=== PATIENT | female | born 1975 | race Caucasian/White ===

== ENCOUNTER 2021-06-10 00:14 | Emergency (ER) | payer OTHER ==
[~2021-06-10] VITALS: Ht 157.5 cm; Wt 117.9 kg
[~2021-06-10 00:14] MED LIST: CLON0.5T3 PO; SERT-318 PO
[2021-06-10 00:35] VITALS: BP 167/94
--- NOTE | 2021-06-10 00:35 | NUR ---
ARRIVAL AMBULATED TO ROOM. HAS HAD COUGH, FATIGUE, VOMITING CONGESTION FOR 2-3 DAYS. ALERT AND ORIENTED X3. DENIES PAIN AT THIS TIME.
--- NOTE | 2021-06-10 01:42 | ER.PDOC ---
General Chief Complaint: Cough/Congestion Stated Complaint: COUGH,VOMITING Time seen by MD: 01:39 Source: patient Exam Limitations: no limitations History of Present Illness Initial Comments 45-year-old female presenting with cough, sore throat and concerns of COVID-19. Patient states that she just like to get tested make sure she does not have any infection during the chilango celebration. Patient denies any fever, no travels, no rashes, no loss of taste well, no shortness of breath, no chest pain. Patient has only received 1 shot of the [place] vaccine Severity: mild Associated Symptoms: runny nose, sore throat, cough Allergies: Coded Allergies: No Known Allergies (Unverified , 05/01/13) Home Meds Reported Medications Sertraline Hcl (SERTRALINE HCL) 50 Mg Tablet, 50 MG PO DAILY, TABLET 05/16/14 Clonazepam (CLONAZEPAM) 0.5 Mg Tablet, 0.5 MG PO BID, TABLET 05/16/14 All Other Systems: Reviewed and Negative Past Medical History Medical History: other Surgical History: appendectomy, cholecystectomy, tubal, other Social History Alcohol Use: none Drug Use: none Physical Exam General Appearance: alert, no distress Eye: eyes nml inspection, lids & conjunct. nml, PERRL, no nystagmus Ear: ear nml Nose: nose nml Throat: pharynx nml, airway nml Neck: nml inspection, supple Respiratory: no resp.distress, breath sounds nml Abdomen: non-tender, no organomegaly CVS: reg rate & rhythm, heart sounds nml Skin: color nml, no rash, warm/dry Extremities: non-tender, nml ROM, no pedal edema NEURO/PSYCH: oriented x 3, CN's nml as tested, motor nml, sensation nml, mood/affect nml Results/Orders Results/Orders Orders - KELIN GANDHI C DO Covid19 Antigen Ana Lainez (06/10/21 00:19) Vital Signs Date Time Temp Pulse Resp B/P (MAP) Pulse Ox O2 Delivery O2 Flow Rate FiO2 06/10/21 00:35 97.9 114 18 100 06/10/21 00:35 97.9 114 18 06/10/21 00:35 97.9 114 18 100 Room Air Laboratory Tests Test 06/10/21 01:00 SARS-CoV-2 Antigen (Rapid) NEGATIVE (NEGATIVE) Progress Progress PT is covid negative. will dispo at this time ER DEPART Departure Time of Disposition: 01:41 Disposition: 01 HOME / SELF CARE / HOMELESS Impression: Primary Impression: Acute bronchitis Condition: Stable Patient Instructions: Bronchitis, [id number] Referrals: PCP,UNKNOWN (PCP) PRIMARY CARE PROVIDER LOW PRYOR MD Duration or Time Spent with Pa: 12 min KELIN GANDHI DO Jun 10, 2021 01:41
[2021-06-10 01:45] VITALS: BP 138/78
== END 2021-06-10 01:49 | disposition home or self-care (01) ==
LOC: ER 00:14
DX: J20.9 Acute bronchitis, unspecified (principal); Z20.822 Contact with and (suspected) exposure to COVID-19; Z90.49 Acquired absence of other specified parts of digestive tract
CPT/HCPCS: 87426; 99283

== ENCOUNTER 2021-07-09 14:23 | Emergency (ER) | payer OTHER ==
[~2021-07-09] VITALS: Ht 157.5 cm; Wt 113.4 kg
[2021-07-09 14:55] VITALS: BP_SYST 174; BP_SYST 175; BP_DIAS 85
--- NOTE | 2021-07-09 14:59 | ER.PDOC ---
General Chief Complaint: Requesting Medical Care Stated Complaint: RIGHT ANKLE INJURY Time seen by MD: 14:57 Source: patient Exam Limitations: no limitations History of Present Illness Initial Comments 45-year-old female presenting with right ankle pain after 1 week. Patient explains a week ago she had misstep and twisted her ankle. The pain seemed okay but progressively worsened in the last 24 hours that she misstepped again. Patient denies any history of bony disease or disorder. Did have some swelling around the lateral side of her ankle. Some fullness but no No numbness and no tingling Onset: last week Recent Injury: Yes Where: home Severity: mild Exacerbated By: walking movement Relieved By: rest Allergies: Coded Allergies: No Known Allergies (Unverified , 05/01/13) Home Meds Reported Medications Sertraline Hcl (SERTRALINE HCL) 50 Mg Tablet, 50 MG PO DAILY, TABLET 05/16/14 Clonazepam (CLONAZEPAM) 0.5 Mg Tablet, 0.5 MG PO BID, TABLET 05/16/14 Past Medical History Medical History: other Surgical History: appendectomy, cholecystectomy, tubal, other Social History Drug Use: none Review of Systems All Other Systems: Reviewed and Negative Physical Exam Lower Extremity: tenderness (On palpation to right lateral ankle as well as the arch of patient's foot.) Joint Exam: joints nml, nml ROM Vascular: no vascular compromise, pulses full/equal Neuro/Psych: sensation nml, motor nml, oriented x3 Skin: color nml, warm/dry Back/Neck: nml inspection EENT: eyes inspection nml, pharynx nml Respiratory: no resp distress, breath sounds nml CVS: reg rate & rhythm, heart sounds nml Abdomen: non-tender, no organomegaly Results/Orders Results/Orders Orders - KELIN GANDHI C DO Xr Ankle 3v Rt (07/09/21 14:55) Xr Foot Rt (07/09/21 14:55) Vital Signs Date Time Temp Pulse Resp B/P (MAP) Pulse Ox O2 Delivery O2 Flow Rate FiO2 07/09/21 15:00 98.2 97 20 175/85 (115) 97 Room Air 07/09/21 14:55 98.2 97 20 97 07/09/21 14:55 98.2 97 20 174/85 (114) 97 Room Air 07/09/21 14:55 98.2 97 20 Progress Progress Negative x-ray. Patient is ambulatory without any difficulty. Will discharge home with ibuprofen for pain and swelling. Follow-up with your primary care doctor. ER DEPART Departure Time of Disposition: 15:31 Disposition: 01 HOME / SELF CARE / HOMELESS Impression: Primary Impression: Ankle pain Condition: Stable Patient Instructions: Ankle Pain Referrals: PCP,UNKNOWN (PCP) PRIMARY CARE PROVIDER LOW PRYOR MD PRIMARY CARE PROVIDER Follow up in 3-5 days Duration or Time Spent with Pa: 15 min KELIN GANDHI DO Jul 09, 2021 14:59
[2021-07-09 15:00] VITALS: BP 175/85
--- NOTE | 2021-07-09 15:01 | NUR ---
ARRIVAL PATIENT ARRIVED TO ED6 AMBULATORY, C/O RIGHT ANKLE PAIN FROM A FALL LAST WEEK, TODAY PAIN CONTINUES, CAME TO THE ED FOR EVAL,
--- NOTE | 2021-07-09 15:26 | DIREP ---
PROCEDURE:XRAY ANKLE MIN 3VWS-RT COMPARISON:None. INDICATIONS:ankle pain FINDINGS: BONES:Prominent right calcaneal spurs. JOINTS:Normal. SOFT TISSUES:Normal. OTHER:No additional findings. CONCLUSION:No acute bony abnormality. Dictated by: Lucie Mayer MD on 07/09/2021 at 03:24 PM
--- NOTE | 2021-07-09 15:28 | DIREP ---
PROCEDURE:XRAY FOOT MIN 3 VWS-RT COMPARISON:None. INDICATIONS:foot pain FINDINGS: BONES:Prior right calcaneal spurs. JOINTS:Normal. SOFT TISSUES:Normal. OTHER:No additional findings. CONCLUSION:No acute bony abnormality. Dictated by: Lucie Mayer MD on 07/09/2021 at 03:25 PM
[2021-07-09 15:35] VITALS: BP 188/85
== END 2021-07-09 15:40 | disposition home or self-care (01) ==
LOC: ER 14:23
DX: M25.571 Pain in right ankle and joints of right foot (principal); Z90.49 Acquired absence of other specified parts of digestive tract
CPT/HCPCS: 99284; 73610-RT; 73630-RT

== ENCOUNTER 2021-08-14 16:48 | Observation (INO) | payer OTHER ==
[~2021-08-14] VITALS: Ht 157.5 cm; Wt 131.5 kg
[2021-08-14 17:00] VITALS: BP 153/93
--- NOTE | 2021-08-14 17:04 | NUR ---
ARRIVAL PATIENT ARRIVED TO ED6 AMBULATORY, C/O CHEST PAIN FOR 2 HOURS MANAGER DRILLING, DENIES ANY CARDIAC HISTORY, CAME TO THE ED FOR EVAL, AUTOMOBILE SALESMAN APPLIED AND DOCTOR TINY NOTIFIED OF PATIENT'S ARRIVAL.
[2021-08-14] MEDS ORDERED: ASPIRIN ONE (17:09)
[2021-08-14] MEDS ORDERED: ASPIRIN PO STA (17:13)
--- NOTE | 2021-08-14 17:15 | PCM.EKG ---
[facility] Test Date: 2021-08-14 Test Time: 16:50:22 Pat Name: MARCIAL RO Department: Room: Gender: F Utilization Review Rn: NIKOLAY : 1975 Requested By: MAYRA FRANKS Order Number: [id number] Reading MD: Measurements Intervals [place] Rate: 109 P: 40 FL: 147 QRS: 45 QRSD: 93 T: 57 QT: 334 QTc: 450 Interpretive Statements Sinus tachycardia Inferior infarct, old No previous ECG available for comparison Please click the below link to view image of tracing.
--- NOTE | 2021-08-14 17:21 | ER.PDOC ---
General Chief Complaint: Chest Pain-Cardiac Nature Stated Complaint: CHEST PAIN Time seen by MD: 17:15 Source: patient Exam Limitations: no limitations History of Present Illness Initial Comments Chest pain left upper chest x 2 hours. Timing/Duration: 1-3 hours Severity/Quality: moderate, tightness Radiation: jaw (left), neck (left) Prior CP/Workup: No Prior Chest Pain Nitro Today/Relief: 0.4 mg x 1 Aspirin Today: 325 mg x 1, Provided By ED Associated Symptoms: shortness of breath Allergies: Coded Allergies: No Known Allergies (Unverified , 05/01/13) Home Meds Reported Medications Sertraline Hcl (SERTRALINE HCL) 50 Mg Tablet, 50 MG PO DAILY, TABLET 05/16/14 Clonazepam (CLONAZEPAM) 0.5 Mg Tablet, 0.5 MG PO BID, TABLET 05/16/14 Past Medical History Medical History: no pertinent history Surgical History: appendectomy, cholecystectomy, tubal Family History Significant Family History: no pertinent family hx Social History Smoking: non-smoker Alcohol Use: none Drug Use: none Constitutional: no symptoms reported EENTM: no symptoms reported Respiratory: see HPI Cardiovascular: see HPI Gastrointestinal: no symptoms reported All Other Systems: Reviewed and Negative Physical Exam General Appearance: No Apparent Distress, WD/WN Neck: Non-Tender, Full Range of Motion, Supple, Normal Inspection Respiratory: chest non-tender, lungs clear, normal breath sounds, no respiratory distress, no accessory muscle use Cardiovascular: Normal Peripheral Pulses, Regular Rate, Rhythm, No Edema, No Gallop, No JVD, No Murmur Gastrointestinal: Normal Bowel Sounds, No Organomegaly, No Pulsatile Mass, Non Tender, Soft Extremities: Normal Range of Motion, Non-Tender, Normal Inspection, No Pedal Edema, No Calf Tenderness, Normal Capillary Refill Neurologic/Psychiatric: electric fan assembler II-XII NML as Tested, No Motor/Sensory Deficits, Alert, Normal Mood/Affect, Oriented x 3 Skin: Normal Color, Warm/Dry Lymphatic: No Adenopathy Results/Orders Results/Orders Orders - MAYRA FRANKS MD Aspirin (Aspirin) (08/14/21 17:09) Cbc With Auto Diff (08/14/21 17:13) Creatine Kinase (08/14/21 17:13) Creatine Kinase Mb (08/14/21 17:13) Probnp B-Type Dean For Student Affairs (08/14/21 17:13) PT (08/14/21 17:13) Partial Thromboplastin Time. (08/14/21 17:13) D-Dimer (08/14/21 17:13) Xr Chest 1v (08/14/21 17:13) Ekg-Routine (08/14/21 17:13) Troponin I High Sensitivity (08/14/21 17:13) Basic Metabolic Panel (08/14/21 17:13) Nitroglycerin (Nitrostat) (08/14/21 17:30) Aspirin (Aspirin) (08/14/21 17:13) Vital Signs Date Time Temp Pulse Resp B/P (MAP) Pulse Ox O2 Delivery O2 Flow Rate FiO2 08/14/21 18:01 98.1 93 22 103/56 (72) 94 Room Air 08/14/21 17:00 98.1 111 22 94 08/14/21 17:00 98.1 111 22 08/14/21 17:00 98.1 111 22 153/93 (113) 94 Room Air Administered Medications Medications (Trade) Dose Ordered Sig/Nikhil Route PRN Reason Start Time Stop Time Status Last Admin Dose Admin Aspirin (Aspirin) 325 mg STAT STAT PO 08/14/21 17:13 08/14/21 17:16 DC 08/14/21 17:18 325 MG Nitroglycerin (Nitrostat) 0.4 mg PRN PRN SL CHEST PAIN 08/14/21 17:30 09/13/21 17:29 08/14/21 17:18 0.4 MG Laboratory Tests Test 08/14/21 17:35 White Blood Count 6.6 10^3/uL (4.5-11.0) Red Blood Count 4.58 10^6/uL (4.00-5.20) Hemoglobin 14.0 g/dL (12.0-15.0) Hematocrit 41.2 % (36.0-46.0) Mean Corpuscular Volume 90.0 fL (78-100) Mean Corpuscular Hemoglobin 30.6 pg (26-34) Mean Corpuscular Hemoglobin Concent 34.0 g/dL (33-36.5) Red Cell Distribution Width 12.6 % (11.5-14.5) Platelet Count 170 10^3/uL (150-400) Mean Platelet Volume 10.1 fL (7.8-11.0) Neutrophils (%) (Auto) 64.7 % (41.0-85.0) Lymphocytes (%) (Auto) 28.8 % (24.0-44.0) Monocytes (%) (Auto) 4.0 % (5.0-12.0) L Neutrophils # (Auto) 4.3 10^3/uL (1.8-7.7) Lymphocytes # (Auto) 1.89 10^3/uL1 (1.0-4.8) Monocytes # (Auto) 0.3 10^3/uL (0.3-0.8) Absolute Immature Granulocyte (auto 0.02 10^3 u/L (0-2) Absolute Eosinophils (auto) 0.1 10^3/uL (0.0-0.2) Immature Granulocytes % 0.30 % (0.00-0.50) Eosinophils % 2.0 % (0.0-5.0) Basophils % 0.2 % (0.0-0.2) Basophils # 0.0 10^3/uL (0.0-0.1) Prothrombin Time 10.1 SEC (9.1-11.5) Prothrombin Time INR (Non-Therap) 1.0 Activated Partial Thromboplast Time 25.3 SEC (22.5-33.1) D-Dimer 0.36 mg/L (0.19-0.49) Sodium Level 137 mmol/L (132-145) Potassium Level 3.5 mmol/L (3.6-5.2) L Chloride Level 100.0 mmol/L (96-109) Carbon Dioxide Level 30.9 mmol/L (20.0-32) Glucose Level 165 mg/dL (70-110) H Blood Urea Nitrogen 10 mg/dL (7-18) Creatinine 0.88 mg/dL (0.59-1.40) Calcium Level 9.3 mg/dL (8.4-10.5) Anion Gap 9.6 Estimated GFR () 84.1 (>/=60) Est GFR (CKD-EPI)(Non-Afr Finnish) 69.5 (>/=60) BUN/Creatinine Ratio 11.0 Total Creatine Kinase 80 U/L (26-192) Creatine Kinase MB 1.2 ng/mL (0.5-3.6) Troponin I High Sensitivity 5 ng/L (0-50) Pro-B-Type Natriuretic Peptide 34 pg/mL (0-125) EKG/XRAY/CT/US EKG: NSR EKG Comments: HR 109, sinus tachycardia ER DEPART Departure Time of Disposition: 18:39 Disposition: 09 ADMITTED INPATIENT Impression: Primary Impression: Chest pain Condition: Improved Referrals: PCP,UNKNOWN (PCP) PRIMARY CARE PROVIDER Comments Admitted to Dr. Dalton Duration or Time Spent with Pa: 45 min Problem Qualifiers Primary Impression: Chest pain Chest pain type: unspecified Qualified Codes: R07.9 - Chest pain, unspecified MAYRA FRANKS MD Aug 14, 2021 17:20
[2021-08-14] MEDS ORDERED: NITROSTAT SL PRN (17:30)
--- NOTE | 2021-08-14 17:31 | DIREP ---
PROCEDURE:CHEST 1 VIEW COMPARISON:None. INDICATIONS:Chest pain FINDINGS: LUNGS/PLEURA:No significant pulmonary parenchymal abnormalities. No effusions. No pneumothorax VASCULATURE:Normal. Unremarkable pulmonary vasculature. CARDIAC:Normal. No cardiac silhouette abnormality or cardiomegaly. MEDIASTINUM:Normal. No visible mass or adenopathy. BONES:Normal. No fracture or visible bony lesion. Degenerative changes right AC joint OTHER:Negative. CONCLUSION:No acute findings Dictated by: Kamron Angeles MD on 08/14/2021 at 05:29 PM
[2021-08-14 17:42] LABS: BASOPHIL % 0.2 % (0.0-0.2); EOSINOPHIL # 0.1 10^3/uL (0.0-0.2); LYMPHOCYTES # 1.89 10^3/uL1 (1.0-4.8); LYMPHOCYTES % 28.8 % (24.0-44.0); MEAN CORP HGB 30.6 pg (26-34); MONOCYTES # 0.3 10^3/uL (0.3-0.8); NEUTROPHIL # 4.3 10^3/uL (1.8-7.7); NEUTROPHILS % 64.7 % (41.0-85.0); PLATELET COUNT 170 10^3/uL (150-400); RED CELL DISTRIBUTION WIDTH 12.6 % (11.5-14.5)
[2021-08-14 18:01] VITALS: BP 103/56
[2021-08-14 18:06] LABS: CARBON DIOXIDE 30.9 mmol/L (20.0-32)
--- NOTE | 2021-08-14 18:49 | NUR ---
CALLED FOR ROOM ON [facility], CHARGE WILL CALL BACK AFTER SHIFT REPORT WITH ROOM NUMBER.
[2021-08-14 20:00] VITALS: BP 112/68
--- NOTE | 2021-08-14 20:11 | NUR ---
REPORT CALLED TO GO RUSSELL RN. PT GOING TO [facility] [id number].
[2021-08-14 22:16] VITALS: BP 113/69
[2021-08-15 00:24] VITALS: BP 126/77
[2021-08-15 04:19] VITALS: BP 112/66
[2021-08-15 08:19] VITALS: BP 119/72
--- NOTE | 2021-08-15 10:37 | PCM.HP ---
History of Present Illness Hx of Present Illness This is both H&P and discharge summary as patient was admitted between and within 24 hours. Patient is a 45-year-old female with no significant past medical history presented to the emergency department with complaint of chest pain on the left side described as tightening chest pain radiating to her left jaw never asked her to pain before in the past that got her scared and came to the emergency department. Initial cardiac work-up was negative due to patient's symptoms after receiving nitroglycerin she was admitted to the medical floor for observation overnight. Serial EKGs and troponins were negative chest pain was resolved overnight and patient was planned this morning to be discharged home and follow-up with PCP. Past Medical History Hx Last Menstrual Period: 08/07/21 Travel History [place] RISK:Travel to/contact w: No Review of Systems Other All review of systems are negative Allergies: Coded Allergies: No Known Allergies (Unverified , 05/01/13) Scheduled Clonazepam (Clonazepam), 0.5 MG PO BID, (Reported) Sertraline Hcl (Sertraline Hcl), 50 MG PO DAILY, (Reported) VTE VTE Risk Total Score: 1 VTE Risk Score VTE Risk: Score 0-1 = Low Risk (Aggressive mobilization; early ambulation; no VTE prophylaxis required) Score 2: Moderate Risk (Intermittent/Pneumatic Compression Device OR Lovenox/Heparin/Coumadin) Score 3-4: High Risk (Intermittent/Pneumatic Compression Device AND Lovenox/Heparin/Coumadin) Score > or =5: Highest Risk (Intermittent/Pneumatic Compression Device AND Lovenox/Heparin/Coumadin) VTE VTE Present on Admission: No Currently receiving anticoagul: No VTE Risk Total Score: 1 Exam Vital Signs Vital Signs Date Time Temp Pulse Resp B/P (MAP) Pulse Ox O2 Delivery O2 Flow Rate FiO2 08/15/21 08:59 Room Air 08/15/21 08:19 97.7 77 14 119/72 (88) 94 General Appearance: Alert, Oriented X3, Cooperative, No acute distress HEENT: Atraumatic, PERRLA, EOMI Respiratory: Clear to auscultation, Normal air movement Cardiovascular: Regular rate, Normal S1, Normal S2 Abdominal: Normal bowel sounds, Soft, No tenderness Extremities: No clubbing, No cyanosis, No edema, Normal pulses Skin: No rash, No breakdown, No lesions Neuro: Normal gait, Normal speech, Strength at 5/5 X4 ext Psych/Mental Status: Mental status NL (Called patient had a kidney was probably under 1.) Assessment/Plan Assessment/Plan Assessment/Plan Chest pain - negative cardiac workup followup with pcp Patient History: Chronic obstructive pulmonary disease 33 FATHER Diabetes mellitus 32 MOTHER Hypertension 32 MOTHER No Family History of: Alzheimer's disease Asthma Cerebrovascular disorder Congestive heart failure Diabetes insipidus Parkinson's disease DEMETRIUS ROBLES MD Aug 15, 2021 10:37
--- NOTE | 2021-08-15 10:39 | NUR ---
DISCHARGE PLANNING CM VISITED WITH PATIENT AND PATIENT'S KIDS ABOUT DISCHARGE PLANNING AND NEEDS. PATIENT CURRENTLY LIVING WITH PATIENT'S SON HERE IN [place] WHILE SHE IS FINDING HER SOMEWHERE TO LIVE IN [place] OR [place], NEAR HER DAUGHTER AND IS IND WITH ALL ADL. PATIENT DENIES ANY NEED FOR ANY DME. PATIENT REPORTS THAT SHE IS GOING TO THE [facility] IN [place] FOR PCP. PATIENT PLANS TO DISCHARGE HOME TO PATIENT'S SON'S HOME TO SELF CARE AND DENIES ANY OTHER DISCHARGE NEEDS.
[2021-08-15 10:52] VITALS: BP 119/72
--- NOTE | 2021-08-15 10:52 | NUR ---
DISCHARGE DISCHARGE INSTRUCTION GIVEN AND QUESTIONS ANSWERED, VOICED UNDERSTANDING. PT DECLINED W/C AMBULATED OFF UNIT ON OWN ACCORD WITH STEADY GAIT IN APPARENT STABLE CONDITION
== END 2021-08-15 10:54 | disposition home or self-care (01) ==
LOC: ER 16:48 → MS 19:31 → EDBEDREQ 19:41
PROVIDERS: ADMIT Student in an Organized Health Care Education/Training Program; ATTEND Student in an Organized Health Care Education/Training Program
DX: R07.89 Other chest pain (principal); Z20.822 Contact with and (suspected) exposure to COVID-19; Z79.899 Other long term (current) drug therapy
CPT/HCPCS: 36415 ×2; 71045; 80048; 82550; 82553; 83880; 84484 ×3; 85025; 85379; 85610; 85730; 87426; 93005; 99285; G0378 ×16

== ENCOUNTER 2021-10-29 06:36 | Emergency (ER) | payer OTHER, SELFPAY ==
[~2021-10-29] VITALS: Ht 157.5 cm; Wt 113.4 kg
[2021-10-29 06:36] VITALS: BP 144/92
--- NOTE | 2021-10-29 06:36 | NUR ---
ARRIVAL PATIENT ARRIVED TO ED4 AMBULATORY, C/O GENERALIZED ABDOMEN PAIN FOR THE PAST 3 HOURS, DENIES TAKING ANY MEDICATIONS DUPLICATE MAKER, CAME TO THE ED FOR EVAL, VITAL SIGNS TAKEN AND DOCTOR NOTIFIED OF PATIENT'S ARRIVAL.
[2021-10-29 07:09] LABS: BILIRUBIN,URINE NEGATIVE (NEGATIVE); UROBILINOGEN,URINE 0.2 E.U./dL (0.2)
[2021-10-29 07:20] LABS: BASOPHIL % 0.2 % (0.0-0.2); EOSINOPHIL # 0.2 10^3/uL (0.0-0.2); EOSINOPHIL % 1.6 % (0.0-5.0); LYMPHOCYTES # 1.65 10^3/uL1 (1.0-4.8); LYMPHOCYTES % 17.4 % (24.0-44.0); MEAN CORP HGB 30.9 pg (26-34); MONOCYTES # 0.4 10^3/uL (0.3-0.8); MONOCYTES % 4.5 % (5.0-12.0); NEUTROPHIL # 7.2 10^3/uL (1.8-7.7); NEUTROPHILS % 76.1 % (41.0-85.0); PLATELET COUNT 138 10^3/uL (150-400); RED CELL DISTRIBUTION WIDTH 13.1 % (11.5-14.5)
[2021-10-29] MEDS ORDERED: MYLANTA PO STA (07:24)
[2021-10-29] MEDS ORDERED: LIDOCAINE HCL VISCOUS PO STA (07:24)
[2021-10-29] MEDS ORDERED: LIDOCAINE HCL VISCOUS ONE (07:25)
[2021-10-29] MEDS ORDERED: MYLANTA ONE (07:26)
[2021-10-29] MEDS ORDERED: PEPCID PO STA (07:34)
[2021-10-29 07:38] LABS: CARBON DIOXIDE 25.3 mmol/L (20.0-32)
[2021-10-29] MEDS ORDERED: PEPCID ONE (07:39)
[2021-10-29] MEDS ORDERED: TYLENOL #3 PO ONE ×2 (07:40)
[2021-10-29 07:47] VITALS: BP 141/90
--- NOTE | 2021-10-29 07:51 | ER.PDOC ---
General Chief Complaint: Abdomen Pain Stated Complaint: MID ABD PAIN Time seen by MD: 07:30 Source: patient Exam Limitations: no limitations History of Present Illness Initial Comments 45-year-old female with a history of H. pylori that was treated years ago who now comes here with acute onset of epigastric abdominal pain that started early this morning when she woke up. The patient admits to being a smoker and also eats some spicy meals. No fever and no chills. No nausea no vomiting. No diarrhea. Symptoms are not associated with activity. The pain is described as moderate to severe and persistent and sharp. Denies any other complaint. Allergies: Coded Allergies: No Known Allergies (Unverified , 05/01/13) Home Meds No Active Prescriptions or Reported Meds Vital Signs First Vital Signs Date Time Temp Pulse Resp B/P (MAP) Pulse Ox O2 Delivery O2 Flow Rate FiO2 10/29/21 06:36 98.3 89 20 10/29/21 06:36 96 10/29/21 06:36 144/92 (109) Room Air* 0 21 Last Vital Signs Date Time Temp Pulse Resp B/P (MAP) Pulse Ox O2 Delivery O2 Flow Rate FiO2 10/29/21 07:47 98.3 79 20 141/90 (107) 96 Room Air* 0 21 Past Medical History Medical History: no pertinent history, other (H. pylori and gastritis) Surgical History: appendectomy, cholecystectomy, tubal Family History Significant Family History: no pertinent family hx Social History Smoking: less than 1 pack/day Alcohol Use: none Drug Use: none Reviewed Nursing Reviewed: Vital Signs, Abn. Noted, Nursing Assessment Constitutional: denies no symptoms reported, denies see HPI, denies chills, denies diaphoresis, denies fever, denies malaise, denies weakness, denies other EENTM: denies no symptoms reported, denies see HPI, denies eye pain, denies blurred vision, denies tearing, denies double vision, denies ear pain, denies ear discharge, denies nose pain, denies nose congestion, denies throat pain, denies throat swelling, denies mouth pain, denies mouth swelling, denies other Respiratory: denies no symptoms reported, denies see HPI, denies cough, denies orthopnea, denies shortness of breath, denies SOB with exertion, denies SOB at rest, denies stridor, denies wheezing, denies other Cardiovascular: denies no symptoms reported, denies see HPI, denies chest pain, denies edema, denies irregular heart rate, denies lightheadedness, denies palpitations, denies syncope, denies other Gastrointestinal: denies no symptoms reported, denies see HPI, denies abdomen distended; abdominal pain; denies blood streaked bowels, denies constipated, denies diarrhea, denies difficulty swallowing, denies nausea, denies poor appeti te, denies poor fluid intake, denies rectal bleeding, denies vomiting, denies other Genitourinary: denies no symptoms reported, denies see HPI, denies burning, denies dysuria, denies discharge, denies frequency, denies flank pain, denies hematuria, denies incontinence, denies pain, denies urgency, denies other Musculoskeletal: denies no symptoms reported, denies see HPI, denies back pain, denies gout, denies joint pain, denies joint swelling, denies muscle pain, d enies muscle stiffness, denies neck pain, denies other Skin: denies no symptoms reported, denies see HPI, denies change in color, denies change in hair/nails, denies dryness, denies lesions, denies lumps, denies rash, denies other Psychiatric/Neurological: denies no symptoms reported, denies see HPI, denies anxiety, denies depressed, denies emotional problems, denies headache, denies numbness, denies paresthesia, denies pre-existing deficit, denies seizure, denies tingling, denies tremors, denies weakness, denies other Endocrine: denies no symptoms reported, denies see HPI, denies excessive sweating, denies flushing, denies intolerance to cold, denies intolerance to heat, denies increased hunger, denies increased thrist, denies increased urine, denies unexplained weight gain, denies unexplaned weight loss, denies other Hematologic/Lymphatic: denies no symptoms reported, denies see HPI, denies anemia, denies blood clots, denies easy bleeding, denies easy bruising, denies swollen glands, denies other All Other Systems: Reviewed and Negative Physical Exam General Appearance: Mild Distress HEENT: PERRL/EOMI, Normal ENT Inspection Neck: Non-Tender, Full Range of Motion, Supple, Normal Inspection Respiratory: chest non-tender, lungs clear, normal breath sounds, no respiratory distress, no accessory muscle use Cardiovascular: Normal Peripheral Pulses, Regular Rate, Rhythm, No Edema, No Gallop, No JVD, No Murmur Gastrointestinal: Normal Bowel Sounds, No Organomegaly, No Pulsatile Mass, Non Tender, Soft Back: Normal Inspection, No CVA Tenderness Extremities: Non-Tender, Normal Inspection, No Pedal Edema, No Calf Tenderness, Normal Capillary Refill 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, No Motor/Sensory Deficits, Alert, Normal Mood/Affect, Oriented x 3 Skin: Normal Color, Warm/Dry, Cyanosis Results/Orders Results/Orders Orders - RIA ROMO MD Mag Hydrox/Aluminum Hyd/Simeth (Mylanta) (10/29/21 07:24) Lidocaine Hcl (Lidocaine Hcl Viscous) (10/29/21 07:24) Lidocaine Hcl (Lidocaine Hcl Viscous) (10/29/21 07:25) Mag Hydrox/Aluminum Hyd/Simeth (Mylanta) (10/29/21 07:26) Famotidine (Pepcid) (10/29/21 07:34) Acetaminophen With Codeine (Tylenol #3) (10/29/21 07:40) Famotidine (Pepcid) (10/29/21 07:39) Acetaminophen With Codeine (Tylenol #3) (10/29/21 07:40) Helicobacter Pylori (10/29/21 07:55) Vital Signs Date Time Temp Pulse Resp B/P (MAP) Pulse Ox O2 Delivery O2 Flow Rate FiO2 10/29/21 07:47 98.3 79 20 141/90 (107) 96 Room Air* 0 21 10/29/21 06:36 98.3 89 20 144/92 (109) 96 Room Air* 0 21 10/29/21 06:36 98.3 89 20 96 10/29/21 06:36 98.3 89 20 Administered Medications Medications (Trade) Dose Ordered Sig/Nikhil Route PRN Reason Start Time Stop Time Status Last Admin Dose Admin Acetaminophen/ Codeine Phosphate (Tylenol #3) 1 each OT ONCE PO 10/29/21 07:40 10/29/21 07:41 DC 10/29/21 07:41 1 EACH Famotidine (Pepcid) 40 mg STAT STAT PO 10/29/21 07:34 10/29/21 07:36 DC 10/29/21 07:40 40 MG Lidocaine HCl (Lidocaine HCl Viscous) 15 ml STAT STAT PO 10/29/21 07:24 10/29/21 07:26 DC 10/29/21 07:28 15 ML Laboratory Tests Test 10/29/21 06:44 10/29/21 07:15 Urine Collection Type RANDOM Urine Color YELLOW Urine Appearance CLEAR Urine Bilirubin NEGATIVE (NEGATIVE) Urine Ketones NEGATIVE (NEGATIVE) Urine Specific [place] 1.020 (1.005-1.030) Urine pH 5.0 (4.5-8.0) Urine Protein NEGATIVE (NEGATIVE) Urine Urobilinogen 0.2 E.U./dL (0.2) Urine Nitrate NEGATIVE (NEGATIVE) Urine Leukocyte Esterase NEGATIVE (NEGATIVE) Urine Glucose (Auto)(UA) NEGATIVE (NEGATIVE) Urine Blood NEGATIVE (NEGATIVE) White Blood Count 9.5 10^3/uL (4.5-11.0) Red Blood Count 4.31 10^6/uL (4.00-5.20) Hemoglobin 13.3 g/dL (12.0-15.0) Hematocrit 38.7 % (36.0-46.0) Mean Corpuscular Volume 89.8 fL (78-100) Mean Corpuscular Hemoglobin 30.9 pg (26-34) Mean Corpuscular Hemoglobin Concent 34.4 g/dL (33-36.5) Red Cell Distribution Width 13.1 % (11.5-14.5) Platelet Count 138 10^3/uL (150-400) L Mean Platelet Volume 10.3 fL (7.8-11.0) Neutrophils (%) (Auto) 76.1 % (41.0-85.0) Lymphocytes (%) (Auto) 17.4 % (24.0-44.0) L Monocytes (%) (Auto) 4.5 % (5.0-12.0) L Neutrophils # (Auto) 7.2 10^3/uL (1.8-7.7) Lymphocytes # (Auto) 1.65 10^3/uL1 (1.0-4.8) Monocytes # (Auto) 0.4 10^3/uL (0.3-0.8) Absolute Immature Granulocyte (auto 0.02 10^3 u/L (0-2) Absolute Eosinophils (auto) 0.2 10^3/uL (0.0-0.2) Immature Granulocytes % 0.20 % (0.00-0.50) Eosinophils % 1.6 % (0.0-5.0) Basophils % 0.2 % (0.0-0.2) Basophils # 0.0 10^3/uL (0.0-0.1) Sodium Level 134 mmol/L (132-145) Potassium Level 4.0 mmol/L (3.6-5.2) Chloride Level 103.0 mmol/L (96-109) Carbon Dioxide Level 25.3 mmol/L (20.0-32) Anion Gap 9.7 Blood Urea Nitrogen 11 mg/dL (7-18) Creatinine 0.76 mg/dL (0.59-1.40) Estimated GFR () 99.6 (>/=60) Est GFR (CKD-EPI)(Non-Afr [place]) 82.3 (>/=60) BUN/Creatinine Ratio 14.0 Glucose Level 116 mg/dL (70-110) H Calcium Level 8.8 mg/dL (8.4-10.5) Total Bilirubin 0.5 mg/dL (0.2-1.0) Aspartate Amino Transferase (AST) 27 U/L (0-35) Alanine Aminotransferase (ALT) 39 U/L (12-78) Alkaline Phosphatase 97 U/L (50-136) Total Protein 7.5 g/dL (6.4-8.2) Albumin 3.5 g/dL (3.4-5.0) Globulin 4.0 Albumin/Globulin Ratio 0.875 Lipase 57 U/L (114-286) L Serum HCG, Qualitative NEGATIVE (NEGATIVE) Helicobacter pylori Screen NEGATIVE (NEGATIVE) Progress Progress All work-up. Negative. No vomiting. No fever. No diarrhea. Low likelihood of any severe intra-abdominal pathology. Will discharge home. She can follow- up with the primary care doctor ER DEPART Departure Time of Disposition: 08:18 Disposition: 01 HOME / SELF CARE / HOMELESS Impression: Primary Impression: Gastritis Additional Impression: Abdominal pain Condition: Improved Patient Instructions: Gastritis, Adult Referrals: PCP,UNKNOWN (PCP) PRIMARY CARE PROVIDER Additional Instructions: avoid all spicy meals no smoking follow up with PCP AMIE Return to clinic if symptoms worsen Scripts No Active Prescriptions or Reported Meds Duration or Time Spent with Pa: 20 min Problem Qualifiers RIA ROMO MD October 29, 2021 07:51
== END 2021-10-29 08:27 | disposition home or self-care (01) ==
LOC: ER 06:36
DX: K29.70 Gastritis, unspecified, without bleeding (principal); R10.31 Right lower quadrant pain; F17.210 Nicotine dependence, cigarettes, uncomplicated; Z86.19 Personal history of other infectious and parasitic diseases; Z87.19 Personal history of other diseases of the digestive system; Z90.49 Acquired absence of other specified parts of digestive tract
CPT/HCPCS: 36415; 80053; 81003; 83690; 84703; 85025; 86677; 99284; J3490 ×2

== ENCOUNTER 2022-03-05 10:00 | Inpatient (IN) | payer SELFPAY ==
[~2022-03-05] VITALS: Ht 157.5 cm; Wt 123.6 kg
[2022-03-05 10:00] VITALS: BP 159/120
--- NOTE | 2022-03-05 10:00 | NUR ---
ARRIVAL PT PRESENTS TO THE ED VIA AMBULATORY WITH C/O ABD PAIN. PT STATES LAST NIGHT SHE STARTED TO HAVE PAIN IN HER LOWER ABD/ PELVIC AREA, PT STATES IT FEELS LIKE SHE IS HAVING CONTRACTIONS, SHE STATES SHE HAS SO MUCH PRESSURE IN THAT AREA. PT DENIES ANY CHANCE OF , SHE STATES SHE IS ABLE TO URINATE BUT IT IS HARD TO GET A STREAM GOING. PT VITALS OBTAINED, PT STABLE, NOTIFIED OF PT ARRIVAL.
[2022-03-05] MEDS ORDERED: NS 1000ML 1,000 ML STA (10:45)
[2022-03-05] MEDS ORDERED: MORPHINE SULFATE IV STA ×2 (10:45→12:18)
[2022-03-05] MEDS ORDERED: ZOFRAN IV STA (10:45)
[2022-03-05] MEDS ORDERED: ZOFRAN ONE (11:19)
[2022-03-05] MEDS ORDERED: MORPHINE SULFATE ONE (11:19)
[2022-03-05] MEDS ORDERED: NS 1000ML 1,000 ML ONE (11:19)
[2022-03-05 11:25] LABS: BILIRUBIN,URINE NEGATIVE (NEGATIVE)
[2022-03-05 11:50] LABS: CARBON DIOXIDE 22.2 mmol/L (20.0-32)
--- NOTE | 2022-03-05 12:04 | DIREP ---
PROCEDURE:CT ABDOMEN/PELVIS W/O CONTRAST COMPARISON:None. INDICATIONS:abd pain TECHNIQUE:Axial images were created through the abdomen and pelvis without intravenous contrast material. No oral contrast was administered. Sagittal and coronal reconstructions were performed from source images. FINDINGS: LUNG BASES:Normal. No visible pulmonary or pleural disease. LIVER:Normal. No significant liver lesions are identified. BILIARY:The gallbladder is surgically absent. PANCREAS:Normal. No lesion, fluid collection, ductal dilatation, or atrophy. SPLEEN:Normal. No enlargement or focal lesion. ADRENALS:Normal. No mass or enlargement. URINARY TRACT:Normal. No focal lesions or hydronephrosis. AORTA/VASCULAR:Normal. No aneurysm. RETROPERITONEUM:Normal. No mass or adenopathy. BOWEL/MESENTERY:Mesenteric inflammatory changes surrounding the sigmoid colon and multiple diverticuli. Findings are felt to represent acute diverticulitis. No evidence of perforation. Mild free fluid in the pelvis tab ABDOMINAL WALL:Normal. No mass or hernia. PELVIC ORGANS:Normal. No visible mass. Pelvic organs appropriate for patient age. BONES:Grade 2 spondylolisthesis L5 on S1 with severe bilateral neural foraminal narrowing. OTHER:Negative. CONCLUSION: 1. Acute diverticulitis, without evidence of perforation. 2. Grade 2 spondylolisthesis L5 on S1 with severe bilateral neural foraminal narrowing. Dictated by: Brenton Scott DO on 03/05/2022 at 12:00 PM
[2022-03-05] MEDS ORDERED: FLAGYL 500MG/ 100 ML NS 100 ML IV STA (12:18)
[2022-03-05 12:27] LABS: MEAN CORP HGB 30.6 pg (26-34)
[2022-03-05 12:28] LABS: BASOPHIL % 0.2 % (0.0-0.2); EOSINOPHIL % 0.4 % (0.0-5.0); LYMPHOCYTES # 1.57 10^3/uL1 (1.0-4.8); LYMPHOCYTES % 14.8 % (24.0-44.0); MONOCYTES # 0.5 10^3/uL (0.3-0.8); MONOCYTES % 4.7 % (5.0-12.0); NEUTROPHIL # 8.4 10^3/uL (1.8-7.7); NEUTROPHILS % 79.7 % (41.0-85.0); PLATELET COUNT 138 10^3/uL (150-400); RED CELL DISTRIBUTION WIDTH 12.4 % (11.5-14.5)
--- NOTE | 2022-03-05 12:53 | ER.PDOC ---
General Chief Complaint: Abdomen Pain Stated Complaint: LOWER ABD/BACK PAIN Time seen by MD: 10:49 Source: patient Exam Limitations: no limitations History of Present Illness Initial Comments Patient is a 46-year-old femaleWith no reported past medical history who comes in with 3 days worth of abdominal pain that is worsening. Patient states over the past 3 days she has had lower quadrant bilateral abdominal pain that is cramping in nature says it is made worse with movement and palpation better with rest. She states that she has associated symptoms of mild diarrhea with some mild nausea without vomiting. Patient denies any fevers.Patient denies any blood in herDiarrheaPatient denies any changes in her urine Allergies: Coded Allergies: No Known Allergies (Unverified , 05/01/13) Home Meds No Active Prescriptions or Reported Meds Vital Signs First Vital Signs Date Time Temp Pulse Resp B/P (MAP) Pulse Ox O2 Delivery O2 Flow Rate FiO2 03/05/22 10:00 98.6 90 20 97 03/05/22 10:00 159/120 (133) Room Air* 0 21 Last Vital Signs Date Time Temp Pulse Resp B/P (MAP) Pulse Ox O2 Delivery O2 Flow Rate FiO2 03/05/22 10:00 98.6 90 20 159/120 (133) 97 Room Air* 0 21 Past Medical History Medical History: no pertinent history Surgical History: appendectomy, cholecystectomy, tubal Family History Significant Family History: no pertinent family hx Social History Smoking: non-smoker Alcohol Use: none Drug Use: none Reviewed Nursing Reviewed: Vital Signs, Abn. Noted, Nursing Assessment Constitutional: malaise EENTM: denies no symptoms reported, denies see HPI, denies eye pain, denies blurred vision, denies tearing, denies double vision, denies ear pain, denies ear discharge, denies nose pain, denies nose congestion, denies throat pain, denies throat swelling, denies mouth pain, denies mouth swelling, denies other Respiratory: denies no symptoms reported, denies see HPI, denies cough, denies orthopnea, denies shortness of breath, denies SOB with exertion, denies SOB at rest, denies stridor, denies wheezing, denies other Cardiovascular: denies no symptoms reported, denies see HPI, denies chest pain, denies edema, denies irregular heart rate, denies lightheadedness, denies palpitations, denies syncope, denies other Gastrointestinal: abdomen distended, abdominal pain, diarrhea, nausea Genitourinary: denies no symptoms reported, denies see HPI, denies burning, denies dysuria, denies discharge, denies frequency, denies flank pain, denies hematuria, denies incontinence, denies pain, denies urgency, denies other Musculoskeletal: denies no symptoms reported, denies see HPI, denies back pain, denies gout, denies joint pain, denies joint swelling, denies muscle pain, denies muscle stiffness, denies neck pain, denies other Skin: denies no symptoms reported, denies see HPI, denies change in color, denies change in hair/nails, denies dryness, denies lesions, denies lumps, denies rash, denies other Psychiatric/Neurological: denies no symptoms reported, denies see HPI, denies anxiety, denies depressed, denies emotional problems, denies headache, denies numbness, denies paresthesia, denies pre-existing deficit, denies seizure, denies tingling, denies tremors, denies weakness, denies other Endocrine: denies no symptoms reported, denies see HPI, denies excessive sweating, denies flushing, denies intolerance to cold, denies intolerance to heat, denies increased hunger, denies increased thrist, denies increased urine, denies unexplained weight gain, denies unexplaned weight loss, denies other Hematologic/Lymphatic: denies no symptoms reported, denies see HPI, denies anemia, denies blood clots, denies easy bleeding, denies easy bruising, denies swollen glands, denies other Physical Exam General Appearance: Anxious HEENT: PERRL/EOMI, Normal ENT Inspection, TMs Normal, Pharynx Normal Neck: Non-Tender, Full Range of Motion, Supple, Normal Inspection Respiratory: chest non-tender, lungs clear, normal breath sounds, no respiratory distress, no accessory muscle use Cardiovascular: Normal Peripheral Pulses, Regular Rate, Rhythm, No Edema, No Gallop, No JVD, No Murmur Gastrointestinal: Hyperactive bowel sounds, Soft, Tenderness (Diffusely worse in bilateral lower quadrants and across the midsection) Back: Normal Inspection, No CVA Tenderness, No Vertebral Tenderness Extremities: Normal Range of Motion, Non-Tender, Normal Inspection, No Pedal Edema, No Calf Tenderness, Normal Capillary Refill, Pelvis Stable 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 (03/05/22 10:45) Hcg Qualitative Serum (03/05/22 10:45) Urinalysis (03/05/22 10:45) Saline Lock (03/05/22 10:45) Ct Abd/Pelvis Wo Iv Contrast (03/05/22 10:45) 0.9 % Sodium Chloride (Ns 1000ml) (03/05/22 10:45) Morphine Sulfate (Morphine Sulfate) (03/05/22 10:45) Ondansetron Hcl/Pf (Zofran) (03/05/22 10:45) 0.9 % Sodium Chloride (Ns 1000ml) (03/05/22 11:19) Ondansetron Hcl/Pf (Zofran) (03/05/22 11:19) Morphine Sulfate (Morphine Sulfate) (03/05/22 11:19) Metronidazole/Sodium Chloride (Flagyl 50 (03/05/22 12:18) Morphine Sulfate (Morphine Sulfate) (03/05/22 12:18) Cbc With Auto Diff (03/05/22 11:20) Hospitalist Consult (03/05/22 12:45) Vital Signs Date Time Temp Pulse Resp B/P (MAP) Pulse Ox O2 Delivery O2 Flow Rate FiO2 03/05/22 10:00 98.6 90 20 159/120 (133) 97 Room Air* 0 21 03/05/22 10:00 98.6 90 20 03/05/22 10:00 98.6 90 20 97 Administered Medications Medications (Trade) Dose Ordered Sig/Nikhil Route PRN Reason Start Time Stop Time Status Last Admin Dose Admin Metronidazole 100 ml @ 100 mls/hr OT STAT IV 03/05/22 12:18 03/05/22 13:17 UNV 03/05/22 12:36 100 MLS/HR Morphine Sulfate (Morphine Sulfate) 4 mg STAT STAT IV 03/05/22 10:45 03/05/22 10:47 DC 03/05/22 11:28 4 MG Morphine Sulfate (Morphine Sulfate) 4 mg STAT STAT IV 03/05/22 12:18 03/05/22 12:19 UNV 03/05/22 12:34 4 MG Ondansetron HCl (Zofran) 4 mg OT STAT IV 03/05/22 10:45 03/05/22 10:47 DC 03/05/22 11:28 4 MG Sodium Chloride 1,000 ml @ 0 mls/hr Q0M STAT IV 03/05/22 10:45 03/05/22 10:47 DC 03/05/22 11:28 1,200 MLS/HR Laboratory Tests Test 03/05/22 00:00 03/05/22 11:20 Urine Collection Type UNKNOWN Urine Color YELLOW Urine Appearance CLEAR Urine Bilirubin NEGATIVE (NEGATIVE) Urine Ketones NEGATIVE (NEGATIVE) Urine Specific [place] 1.020 (1.005-1.030) Urine pH 7.0 (4.5-8.0) Urine Protein NEGATIVE (NEGATIVE) Urine Urobilinogen 1.0 E.U./dL (0.2) Urine Nitrate NEGATIVE (NEGATIVE) Urine Leukocyte Esterase NEGATIVE (NEGATIVE) Urine Glucose (Auto)(UA) NEGATIVE (NEGATIVE) Urine Blood NEGATIVE (NEGATIVE) White Blood Count 10.6 10^3/uL (4.5-11.0) Red Blood Count 4.80 10^6/uL (4.00-5.20) Hemoglobin 14.7 g/dL (12.0-15.0) Hematocrit 42.3 % (36.0-46.0) Mean Corpuscular Volume 88.1 fL (78-100) Mean Corpuscular Hemoglobin 30.6 pg (26-34) Mean Corpuscular Hemoglobin Concent 24.8 g/dL (33-36.5) L Red Cell Distribution Width 12.4 % (11.5-14.5) Platelet Count 138 10^3/uL (150-400) L Mean Platelet Volume 10.2 fL (7.8-11.0) Neutrophils (%) (Auto) 79.7 % (41.0-85.0) Lymphocytes (%) (Auto) 14.8 % (24.0-44.0) L Monocytes (%) (Auto) 4.7 % (5.0-12.0) L Neutrophils # (Auto) 8.4 10^3/uL (1.8-7.7) H Lymphocytes # (Auto) 1.57 10^3/uL1 (1.0-4.8) Monocytes # (Auto) 0.5 10^3/uL (0.3-0.8) Absolute Immature Granulocyte (auto 0.02 10^3 u/L (0-2) Absolute Eosinophils (auto) 0.0 10^3/uL (0.0-0.2) Immature Granulocytes % 0.20 % (0.00-0.50) Eosinophils % 0.4 % (0.0-5.0) Basophils % 0.2 % (0.0-0.2) Basophils # 0.0 10^3/uL (0.0-0.1) Prothrombin Time 10.8 SEC (9.1-11.5) Prothrombin Time INR (Non-Therap) 1.1 Activated Partial Thromboplast Time 20.3 SEC (22.5-33.1) L Sodium Level 137 mmol/L (132-145) Potassium Level 4.4 mmol/L (3.6-5.2) Chloride Level 99.0 mmol/L (96-109) Carbon Dioxide Level 22.2 mmol/L (20.0-32) Anion Gap 20.2 Blood Urea Nitrogen 11 mg/dL (7-18) Creatinine 0.53 mg/dL (0.59-1.40) L Estimated GFR () 150.3 (>/=60) Est GFR (CKD-EPI)(Non-Afr [place]) 124.2 (>/=60) BUN/Creatinine Ratio 20.0 Glucose Level 125 mg/dL (70-110) H Calcium Level 9.0 mg/dL (8.4-10.5) Total Bilirubin 1.0 mg/dL (0.2-1.0) Aspartate Amino Transferase (AST) 58 U/L (0-35) H Alanine Aminotransferase (ALT) 62 U/L (12-78) Alkaline Phosphatase 94 U/L (50-136) Total Protein 7.5 g/dL (6.4-8.2) Albumin 3.6 g/dL (3.4-5.0) Globulin 3.9 Albumin/Globulin Ratio 0.923 Lipase 35 U/L (114-286) L Serum HCG, Qualitative NEGATIVE (NEGATIVE) Progress Progress Patient here with lower abdominal pain seems to be in significant distress. Will provide pain and nausea control however will also obtain labs including urine and CT abdomen this is patient could have a surgical abdomen. Patient otherwise hemodynamically stable. 1251reassessmentpatient still remains in pain. Her pain has been difficult to control discussed with her at length that this is usually an outpatient treatment but she kept saying that she would prefer to stay admitted because of the pain that she is in at this point she has gotten 8 mg ofMorphine. Was able to discuss the case with Dr. Johnson at 1248 who accepted the patient for admission.Patient otherwise hemodynamically normal.Flagyl was started. ER DEPART Departure Time of Disposition: 12:52 Disposition: 09 ADMITTED INPATIENT Impression: Primary Impression: Diverticulitis Additional Impression: Intractable abdominal pain Condition: Stable Referrals: PCP,UNKNOWN (PCP) PRIMARY CARE PROVIDER Scripts No Active Prescriptions or Reported Meds Duration or Time Spent with Pa: 45 Problem Qualifiers JUAN JOSE HELTON MD Mar 05, 2022 12:53
[2022-03-05] MEDS ORDERED: CIPRO PO SCH (14:00)
[2022-03-05 14:45] VITALS: BP 141/71
[2022-03-05] MEDS ORDERED: FLAGYL PO SCH (15:00)
--- NOTE | 2022-03-05 15:08 | PCM.HP ---
History of Present Illness Reason for Visit: (1) Diverticulitis ICD Code: K57.92 - Diverticulitis of intestine, part unspecified, without perforation or abscess without bleeding SNOMED: 214451599 Hx of Present Illness Ms. Sue is a pleasant 46yoF who presents with Lower abdominal pain over the past 12 hours. The patient reports that she has had nausea and emesis as well as crampy abdominal pain chiefly afflicting the lower quadrants. She has not had diarrhea and had a normal bowel movement this morning. The patient reports that she had been in her usual state of excellent health prior to the onset of symptoms, and takes no medications on a regular basis. Travel History [place] RISK:Travel to/contact w: No Review of Systems Other Complete review of systems is negative except as per HPI Allergies: Coded Allergies: No Known Allergies (Unverified , 05/01/13) No Active Prescriptions or Reported Meds VTE VTE Risk Total Score: 1 VTE Risk Score VTE Risk: Score 0-1 = Low Risk (Aggressive mobilization; early ambulation; no VTE prophylaxis required) Score 2: Moderate Risk (Intermittent/Pneumatic Compression Device OR Lovenox/Heparin/Coumadin) Score 3-4: High Risk (Intermittent/Pneumatic Compression Device AND Lovenox/Heparin/Coumadin) Score > or =5: Highest Risk (Intermittent/Pneumatic Compression Device AND Lovenox/Heparin/Coumadin) VTE VTE Present on Admission: No Currently receiving anticoagul: No VTE Risk Total Score: 1 Exam Vital Signs Vital Signs Date Time Temp Pulse Resp B/P (MAP) Pulse Ox O2 Delivery O2 Flow Rate FiO2 03/05/22 10:00 98.6 90 20 159/120 (133) 97 Room Air* 0 21 General Appearance: Oriented X3 HEENT: Atraumatic, PERRLA Respiratory: Clear to auscultation Cardiovascular: Regular rate, Normal S1 Abdominal: Normal bowel sounds, Soft Extremities: No clubbing, No cyanosis Skin: No breakdown Neuro: Normal gait, Normal speech Psych/Mental Status: Mental status NL, Mood NL Assessment/Plan Assessment/Plan Problems: (1) Diverticulitis Status: Acute Assessment & Plan: Based upon CT evaluation as well as clinical symptoms, started patient on IV metronidazole and Cipro given the patient's inability to tolerate orals,Transition to p.o. medications when she is tolerating pills ICD Code: K57.92 - Diverticulitis of intestine, part unspecified, without perforation or abscess without bleeding SNOMED: 779077848 (2) Intractable abdominal pain Status: Acute Assessment & Plan: Secondary to diverticulitis as above ICD Code: R10.9 - Unspecified abdominal pain SNOMED: 45270702 (3) Nausea & vomiting Status: Acute Assessment & Plan: Secondary to diverticulitis, will start patient on scheduled Zofran as well as IV antibiotics and 100 mL an hour of potassium fortified D5 half-normal saline until she is tolerating oral intake ICD Code: R11.2 - Nausea with vomiting, unspecified SNOMED: [id number] Patient History: Chronic obstructive pulmonary disease 33 FATHER Diabetes mellitus 32 MOTHER Hypertension 32 MOTHER No Family History of: Alzheimer's disease Asthma Cerebrovascular disorder Congestive heart failure Diabetes insipidus Parkinson's disease RYLEE BEST MD Mar 05, 2022 15:08
[2022-03-05] MEDS: ZOFRAN IV SCH ×2 (16:22→21:09)
[2022-03-05] MEDS ORDERED: TYLENOL PO SCH (16:30)
[2022-03-05] MEDS: OFIRMEV IV SCH (16:37)
[2022-03-05] MEDS: D5W-1/2 NS/KCL 20MEQ 1,000 ML IV SCH (16:38)
[2022-03-05] MEDS: CIPRO 400MG/200ML 200 ML IV SCH (16:38)
[2022-03-05 19:00] VITALS: BP 127/76
[2022-03-05] MEDS: ULTRAM PO PRN (19:13)
[2022-03-05] MEDS: FLAGYL 500MG/ 100 ML NS 100 ML IV SCH (21:09)
[2022-03-05] MEDS: MORPHINE SULFATE IV PRN (21:58)
[2022-03-06] VITALS (7 sets, daily range): BP systolic 110–137; BP diastolic 62–90
[2022-03-06] MEDS: OFIRMEV IV SCH ×3 (00:21→16:32)
[2022-03-06] MEDS: CIPRO 400MG/200ML 200 ML IV SCH ×2 (03:40→17:47)
[2022-03-06] MEDS: ZOFRAN IV SCH ×4 (03:40→20:46)
[2022-03-06] MEDS: MORPHINE SULFATE IV PRN (04:12)
[2022-03-06 04:29] LABS: BASOPHIL % 0.2 % (0.0-0.2); EOSINOPHIL # 0.1 10^3/uL (0.0-0.2); EOSINOPHIL % 0.7 % (0.0-5.0); LYMPHOCYTES # 1.65 10^3/uL1 (1.0-4.8); LYMPHOCYTES % 19.2 % (24.0-44.0); MEAN CORP HGB 30.9 pg (26-34); MONOCYTES # 0.5 10^3/uL (0.3-0.8); MONOCYTES % 6.3 % (5.0-12.0); NEUTROPHIL # 6.3 10^3/uL (1.8-7.7); NEUTROPHILS % 73.6 % (41.0-85.0); PLATELET COUNT 137 10^3/uL (150-400); RED CELL DISTRIBUTION WIDTH 12.8 % (11.5-14.5)
[2022-03-06 04:38] LABS: CARBON DIOXIDE 29.3 mmol/L (20.0-32)
[2022-03-06] MEDS: ULTRAM PO PRN (06:25)
--- NOTE | 2022-03-06 08:00 | NUR ---
LATE ENTRY RECEIVED ORDER FROM DR IRWIN FOR PATIENT TO BE NPO. BREAKFAST TRAY REMOVED, SIGN PLACE ON DOOR AND PATIENT EDUCATED REGARDING HER NPO STATUS. PATIENT VOICED UNDERSTANDING. INFORMATION PASSED TO ONCOMING NURSE IN REPORT,
[2022-03-06] MEDS: D5W-1/2 NS/KCL 20MEQ 1,000 ML IV SCH ×2 (09:58→20:46)
[2022-03-06] MEDS: FLAGYL 500MG/ 100 ML NS 100 ML IV SCH ×3 (10:23→20:46)
--- NOTE | 2022-03-06 10:28 | NUR ---
DISCHARGE PLAN- F/U WITH [facility] CM AT BEDSIDE AND VISITED WITH PATIENT REGARDING D/C PLAN AND GOAL. PT STATED "I AM LIVING WITH MY SON AKUA HERE IN [place]." PATIENT DENIED USE OF DM IN THE HOME AND STATES SHE IS VERY ACTIVE AND IND OF ADL. SHE WORKS AT [employer]. SHE WAS TRYING TO BECOME ESTABLISHED WITH THE [facility] AND HAS BEEN UNSUCCESSFUL THEY HAVE NOT RETURNED HER CALLS OR EMAILS. EDUCATED THAT [facility] HAS AN ASSISTANCE PROGRAM AND MAY BE ABLE TO GET HER ESTABLISHED A PATIENT THERE. SHONA CONTACTED MAYA WITH THE [facility] AND INSTRUCTED THAT PATIENT WILL NEED TO CALL AND SPEAK TO JUDSON @ [phone]. WILL COMMUNICATE INFORMATION TO PT AND RN CARING FOR PATIENT. DISCHARGE GOAL IS FOR PATIENT TO D/C BACK HOME TO ROUTINE CARE AND CONTACT [facility] FOR FOLLOW UP CARE. Addendum: 03/06/22 at 1039 by Yashira Herring RN - Generation Technologist RN CM LEFT HEAL THE [facility], PCP LIST AND [place] [facility] WITH PATIENT AT THE BEDSIDE.
[2022-03-06] MEDS ORDERED: MORPHINE SULFATE IV PRN (11:30)
--- NOTE | 2022-03-06 11:31 | PRM.PN ---
Subjective Subjective Date: Mar 06, 2022 Time: 09:00 Subjective Patient still complaining of significant lower abdominal pain. Patient History: Chronic obstructive pulmonary disease 33 FATHER Diabetes mellitus 32 MOTHER Hypertension 32 MOTHER No Family History of: Alzheimer's disease Asthma Cerebrovascular disorder Congestive heart failure Diabetes insipidus Parkinson's disease Review of Systems Gastrointestinal: Nausea, Abdominal Pain Other Review of other 14 systems negative except was mentioned above. Allergies: Coded Allergies: No Known Allergies (Unverified , 05/01/13) No Active Prescriptions or Reported Meds Objective Vitals and I/O Vital Sign - Last 24 Hours 03/05/22 03/05/22 03/05/22 03/06/22 14:45 14:45 19:00 00:28 Temp 100.4 98.9 98.7 Pulse 104 92 91 Resp 18 20 18 B/P (MAP) 141/71 (94) 127/76 (93) 137/80 (99) Pulse Ox 97 92 91 O2 Delivery Room Air* Room Air Room Air* Room Air* O2 Flow Rate 0 0.00 0 0 FiO2 21 21 21 03/06/22 03/06/22 03/06/22 03:17 04:48 08:10 Temp 98.2 98.0 Pulse 76 76 Resp 18 15 B/P (MAP) 123/82 (96) 135/89 (104) Pulse Ox 95 95 O2 Delivery Room Air Room Air* Room Air* O2 Flow Rate 0.00 0 0 FiO2 Intake and Output 03/06/22 07:00 Intake Total 500 ml Balance 500 ml General: Oriented X3, moderate distress HEENT: Atraumatic, PERRLA, Other (Dry mucous membrane) Lungs: Clear to auscultation Heart: Regular rate, Normal S1 Abdomen: Normal bowel sounds, Soft, Other (Lower abdominal tenderness) Extremities: No clubbing, No cyanosis Neuro: Normal gait, Normal speech Psych/Mental Status: Mental status NL, Mood NL All Results(Lab/Rad) Laboratory Tests Test 03/06/22 04:16 White Blood Count 8.6 10^3/uL Red Blood Count 4.08 10^6/uL Hemoglobin 12.6 g/dL Hematocrit 36.9 % Mean Corpuscular Volume 90.4 fL Mean Corpuscular Hemoglobin 30.9 pg Mean Corpuscular Hemoglobin Concent 34.1 g/dL Red Cell Distribution Width 12.8 % Platelet Count 137 10^3/uL Mean Platelet Volume 10.0 fL Neutrophils (%) (Auto) 73.6 % Lymphocytes (%) (Auto) 19.2 % Monocytes (%) (Auto) 6.3 % Neutrophils # (Auto) 6.3 10^3/uL Lymphocytes # (Auto) 1.65 10^3/uL1 Monocytes # (Auto) 0.5 10^3/uL Absolute Immature Granulocyte (auto 0.02 10^3 u/L Absolute Eosinophils (auto) 0.1 10^3/uL Immature Granulocytes % 0.20 % Eosinophils % 0.7 % Basophils % 0.2 % Basophils # 0.0 10^3/uL Sodium Level 135 mmol/L Potassium Level 3.6 mmol/L Chloride Level 99.0 mmol/L Carbon Dioxide Level 29.3 mmol/L Anion Gap 10.3 Blood Urea Nitrogen 8 mg/dL Creatinine 0.76 mg/dL Estimated GFR () 99.1 Est GFR (CKD-EPI)(Non-Afr Belarusian) 81.9 BUN/Creatinine Ratio 10.0 Glucose Level 154 mg/dL Calcium Level 8.7 mg/dL Total Bilirubin 1.2 mg/dL Aspartate Amino Transf (AST/SGOT) 34 U/L Alanine Aminotransferase (ALT/SGPT) 63 U/L Alkaline Phosphatase 89 U/L Total Protein 7.0 g/dL Albumin 3.1 g/dL Globulin 3.9 Albumin/Globulin Ratio 0.794 Current Medications Medications (Trade) Dose Ordered Sig/Nikhil Route PRN Reason Start Time Stop Time Status Last Admin Dose Admin Sodium Chloride 1,000 ml @ 0 mls/hr Q0M STAT IV 03/05/22 10:45 03/05/22 10:47 DC 03/05/22 11:28 Morphine Sulfate (Morphine Sulfate) 4 mg STAT STAT IV 03/05/22 10:45 03/05/22 10:47 DC 03/05/22 11:28 Ondansetron HCl (Zofran) 4 mg OT STAT IV 03/05/22 10:45 03/05/22 10:47 DC 03/05/22 11:28 Sodium Chloride 1,000 ml @ ud STK-MED ONCE .ROUTE 03/05/22 11:19 03/05/22 11:19 DC Ondansetron HCl (Zofran) 4 mg STK-MED ONCE .ROUTE 03/05/22 11:19 03/05/22 11:19 DC Morphine Sulfate (Morphine Sulfate) 2 mg STK-MED ONCE .ROUTE 03/05/22 11:19 03/05/22 11:20 DC Metronidazole 100 ml @ 100 mls/hr OT STAT IV 03/05/22 12:18 03/05/22 13:37 DC 03/05/22 12:36 Morphine Sulfate (Morphine Sulfate) 4 mg STAT STAT IV 03/05/22 12:18 03/05/22 13:37 DC 03/05/22 12:34 Ciprofloxacin (Cipro) 250 mg BID PO 03/05/22 14:00 03/05/22 14:50 DC 03/05/22 14:00 Metronidazole (Flagyl) 500 mg TID PO 03/05/22 15:00 03/05/22 14:50 DC 03/05/22 14:01 Potassium Chloride/Dextrose/ Sod Cl 1,000 ml @ 100 mls/hr Q10H IV 03/05/22 15:00 04/04/22 14:59 03/06/22 09:58 Metronidazole 100 ml @ 100 mls/hr TID IV 03/05/22 15:00 04/04/22 14:59 03/06/22 10:23 Ondansetron HCl (Zofran) 8 mg Q6H IV 03/05/22 15:00 04/04/22 14:59 03/06/22 09:59 Acetaminophen (Tylenol) 650 mg Q6H PO 03/05/22 16:30 03/05/22 16:29 DC Tramadol HCl (Ultram) 50 mg Q4HR PRN PO PAIN 4 - 6 03/05/22 16:30 04/04/22 16:29 03/06/22 06:25 Acetaminophen (Ofirmev) 1,000 mg Q8H IV 03/05/22 16:30 04/04/22 16:29 03/06/22 10:00 Morphine Sulfate (Morphine Sulfate) 3 mg Q4H PRN IV severe pain 7-10 03/05/22 22:00 03/06/22 08:00 DC 03/06/22 04:12 Assessment/Plan Assessment/Plan Assessment/Plan Plan Patient n.p.o. today IV fluids Chest pain medications Monitor and correct electrolytes Continue IV antibiotics DVT prophylaxis SCDs while in bedClinic Disposition continue inpatient management Pending clinical..improvement Problems: (1) Intractable abdominal pain Status: Acute ICD Code: R10.9 - Unspecified abdominal pain SNOMED: 99177070 (2) Diverticulitis Status: Acute ICD Code: K57.92 - Diverticulitis of intestine, part unspecified, without perforation or abscess without bleeding SNOMED: 473917940 (3) Nausea & vomiting Status: Acute ICD Code: R11.2 - Nausea with vomiting, unspecified SNOMED: 15133015 (4) Morbid obesity ICD Code: E66.01 - Morbid (severe) obesity due to excess calories SNOMED: 231844440 SARANYA IRWIN MD Mar 06, 2022 11:31
--- NOTE | 2022-03-06 12:00 | NUR ---
[facility] UPDATE CM COMMUNICATED WITH PATIENTS SON THAT [facility] REQUESTED THAT PATIENT CALL AND SPEAK WITH JUDSON AT THE CLINICAL AND ASK FOR ASSISTANCE PROGRAM FOR FOLLOW UP CARE ONCE PATIENT IS DISCHARGED FROM ACUTE CARE.
[2022-03-06] MEDS: PROTONIX IV IV SCH (12:37)
[2022-03-06] MEDS: TORADOL IV PRN (20:45)
[2022-03-07] MEDS: D5W-1/2 NS/KCL 20MEQ 1,000 ML IV SCH ×2 (00:10→19:58)
[2022-03-07] MEDS: OFIRMEV IV SCH ×3 (00:10→17:29)
[2022-03-07] MEDS: CIPRO 400MG/200ML 200 ML IV SCH ×2 (03:19→16:38)
[2022-03-07] MEDS: TORADOL IV PRN ×3 (03:20→21:20)
[2022-03-07] MEDS: ZOFRAN IV SCH ×4 (03:20→21:00)
[2022-03-07 03:35] VITALS: BP 132/80
[2022-03-07 04:47] LABS: BASOPHIL % 0.2 % (0.0-0.2); EOSINOPHIL # 0.1 10^3/uL (0.0-0.2); EOSINOPHIL % 1.6 % (0.0-5.0); LYMPHOCYTES # 1.51 10^3/uL1 (1.0-4.8); MEAN CORP HGB 30.7 pg (26-34); MONOCYTES # 0.3 10^3/uL (0.3-0.8); MONOCYTES % 5.4 % (5.0-12.0); NEUTROPHIL # 4.3 10^3/uL (1.8-7.7); NEUTROPHILS % 68.8 % (41.0-85.0); PLATELET COUNT 123 10^3/uL (150-400); RED CELL DISTRIBUTION WIDTH 12.7 % (11.5-14.5)
[2022-03-07 04:53] LABS: CARBON DIOXIDE 25.5 mmol/L (20.0-32)
[2022-03-07 08:00] VITALS: BP 126/80
[2022-03-07] MEDS: PROTONIX IV IV SCH (08:46)
[2022-03-07] MEDS: FLAGYL 500MG/ 100 ML NS 100 ML IV SCH ×3 (10:37→20:23)
--- NOTE | 2022-03-07 11:05 | PRM.PN ---
Subjective Subjective Date: Mar 07, 2022 Time: 09:00 Subjective Patient still complainingLower abdominal pain but to a lesser extent. Patient History: Chronic obstructive pulmonary disease 33 FATHER Diabetes mellitus 32 MOTHER Hypertension 32 MOTHER No Family History of: Alzheimer's disease Asthma Cerebrovascular disorder Congestive heart failure Diabetes insipidus Parkinson's disease Review of Systems Gastrointestinal: Nausea, Abdominal Pain Allergies: Coded Allergies: No Known Allergies (Unverified , 05/01/13) No Active Prescriptions or Reported Meds Objective Vitals and I/O Vital Sign - Last 24 Hours 03/06/22 03/06/22 03/06/22 03/06/22 12:04 16:30 19:44 23:40 Temp 98.4 98.7 98.6 98.7 Pulse 80 78 75 76 Resp 18 18 18 15 B/P (MAP) 110/62 (78) 124/80 (95) 135/90 (105) 122/80 (94) Pulse Ox 94 95 93 100 O2 Delivery Room Air* Room Air* Room Air* Room Air* O2 Flow Rate 0 0 0 0 FiO2 21 03/07/22 03/07/22 03/07/22 00:54 03:35 08:00 Temp 98.3 97.9 Pulse 69 67 Resp 16 20 B/P (MAP) 132/80 (97) 126/80 (95) Pulse Ox 97 95 O2 Delivery Room Air Room Air* Room Air* O2 Flow Rate 0.00 0 0 FiO2 Intake and Output 03/07/22 07:00 Intake Total 200 ml Balance 200 ml General: Oriented X3, moderate distress HEENT: Atraumatic, PERRLA, Other (Dry mucous membrane) Lungs: Clear to auscultation Heart: Regular rate, Normal S1 Abdomen: Normal bowel sounds, Soft, Other (Lower abdominal tenderness) Extremities: No clubbing, No cyanosis Neuro: Normal gait, Normal speech Psych/Mental Status: Mental status NL, Mood NL All Results(Lab/Rad) Laboratory Tests Test 03/06/22 04:16 White Blood Count 8.6 10^3/uL Red Blood Count 4.08 10^6/uL Hemoglobin 12.6 g/dL Hematocrit 36.9 % Mean Corpuscular Volume 90.4 fL Mean Corpuscular Hemoglobin 30.9 pg Mean Corpuscular Hemoglobin Concent 34.1 g/dL Red Cell Distribution Width 12.8 % Platelet Count 137 10^3/uL Mean Platelet Volume 10.0 fL Neutrophils (%) (Auto) 73.6 % Lymphocytes (%) (Auto) 19.2 % Monocytes (%) (Auto) 6.3 % Neutrophils # (Auto) 6.3 10^3/uL Lymphocytes # (Auto) 1.65 10^3/uL1 Monocytes # (Auto) 0.5 10^3/uL Absolute Immature Granulocyte (auto 0.02 10^3 u/L Absolute Eosinophils (auto) 0.1 10^3/uL Immature Granulocytes % 0.20 % Eosinophils % 0.7 % Basophils % 0.2 % Basophils # 0.0 10^3/uL Sodium Level 135 mmol/L Potassium Level 3.6 mmol/L Chloride Level 99.0 mmol/L Carbon Dioxide Level 29.3 mmol/L Anion Gap 10.3 Blood Urea Nitrogen 8 mg/dL Creatinine 0.76 mg/dL Estimated GFR () 99.1 Est GFR (CKD-EPI)(Non-Afr Lao) 81.9 BUN/Creatinine Ratio 10.0 Glucose Level 154 mg/dL Calcium Level 8.7 mg/dL Total Bilirubin 1.2 mg/dL Aspartate Amino Transf (AST/SGOT) 34 U/L Alanine Aminotransferase (ALT/SGPT) 63 U/L Alkaline Phosphatase 89 U/L Total Protein 7.0 g/dL Albumin 3.1 g/dL Globulin 3.9 Albumin/Globulin Ratio 0.794 Current Medications Medications (Trade) Dose Ordered Sig/Nikhil Route PRN Reason Start Time Stop Time Status Last Admin Dose Admin Sodium Chloride 1,000 ml @ 0 mls/hr Q0M STAT IV 03/05/22 10:45 03/05/22 10:47 DC 03/05/22 11:28 Morphine Sulfate (Morphine Sulfate) 4 mg STAT STAT IV 03/05/22 10:45 03/05/22 10:47 DC 03/05/22 11:28 Ondansetron HCl (Zofran) 4 mg OT STAT IV 03/05/22 10:45 03/05/22 10:47 DC 03/05/22 11:28 Sodium Chloride 1,000 ml @ ud STK-MED ONCE .ROUTE 03/05/22 11:19 03/05/22 11:19 DC Ondansetron HCl (Zofran) 4 mg STK-MED ONCE .ROUTE 03/05/22 11:19 03/05/22 11:19 DC Morphine Sulfate (Morphine Sulfate) 2 mg STK-MED ONCE .ROUTE 03/05/22 11:19 03/05/22 11:20 DC Metronidazole 100 ml @ 100 mls/hr OT STAT IV 03/05/22 12:18 03/05/22 13:37 DC 03/05/22 12:36 Morphine Sulfate (Morphine Sulfate) 4 mg STAT STAT IV 03/05/22 12:18 03/05/22 13:37 DC 03/05/22 12:34 Ciprofloxacin (Cipro) 250 mg BID PO 03/05/22 14:00 03/05/22 14:50 DC 03/05/22 14:00 Metronidazole (Flagyl) 500 mg TID PO 03/05/22 15:00 03/05/22 14:50 DC 03/05/22 14:01 Potassium Chloride/Dextrose/ Sod Cl 1,000 ml @ 100 mls/hr Q10H IV 03/05/22 15:00 04/04/22 14:59 03/06/22 09:58 Metronidazole 100 ml @ 100 mls/hr TID IV 03/05/22 15:00 04/04/22 14:59 03/06/22 10:23 Ondansetron HCl (Zofran) 8 mg Q6H IV 03/05/22 15:00 04/04/22 14:59 03/06/22 09:59 Acetaminophen (Tylenol) 650 mg Q6H PO 03/05/22 16:30 03/05/22 16:29 DC Tramadol HCl (Ultram) 50 mg Q4HR PRN PO PAIN 4 - 6 03/05/22 16:30 04/04/22 16:29 03/06/22 06:25 Acetaminophen (Ofirmev) 1,000 mg Q8H IV 03/05/22 16:30 04/04/22 16:29 03/06/22 10:00 Morphine Sulfate (Morphine Sulfate) 3 mg Q4H PRN IV severe pain 7-10 03/05/22 22:00 03/06/22 08:00 DC 03/06/22 04:12 Assessment/Plan Assessment/Plan Assessment/Plan Plan Patient n.p.o. today IV fluids Chest pain medications Monitor and correct electrolytes Continue IV antibiotics DVT prophylaxis SCDs while in bedClinic Disposition continue inpatient management Pending clinical..improvement 03/07/2022 Patient still complaining of lower abdominal pain requiring IV medications Continue IV antibiotics Keep n.p.o. for today hopefully if she starts improving we will start introducing clear liquids and antibiotics GI and DVT prophylaxis Pain management disposition continue inpatient management today, today discharge home tomorrow if patient pain improves and able to tolerate p.o. Problems: (1) Diverticulitis Status: Acute ICD Code: K57.92 - Diverticulitis of intestine, part unspecified, without perforation or abscess without bleeding SNOMED: 613418986 (2) Intractable abdominal pain Status: Acute ICD Code: R10.9 - Unspecified abdominal pain SNOMED: 77432903 (3) Nausea & vomiting Status: Acute ICD Code: R11.2 - Nausea with vomiting, unspecified SNOMED: 85168729 (4) Morbid obesity ICD Code: E66.01 - Morbid (severe) obesity due to excess calories SNOMED: 358035662 SARANYA IRWIN MD Mar 07, 2022 11:05
[2022-03-07 13:00] VITALS: BP 122/78
[2022-03-07 17:57] VITALS: BP 130/76
[2022-03-07 19:58] VITALS: BP 131/80
[2022-03-07 23:39] VITALS: BP 114/65
[2022-03-08] MEDS: OFIRMEV IV SCH ×2 (00:30→08:16)
[2022-03-08] MEDS: ZOFRAN IV SCH ×2 (03:00→08:26)
[2022-03-08] MEDS ORDERED: NS 250ML 250 ML ONE (03:09)
[2022-03-08] MEDS: CIPRO 400MG/200ML 200 ML IV SCH (03:11)
[2022-03-08 04:34] VITALS: BP 124/75
[2022-03-08 05:27] LABS: CARBON DIOXIDE 27.6 mmol/L (20.0-32)
[2022-03-08 05:41] LABS: BASOPHIL % 0.4 % (0.0-0.2); EOSINOPHIL # 0.1 10^3/uL (0.0-0.2); EOSINOPHIL % 2.5 % (0.0-5.0); LYMPHOCYTES # 1.24 10^3/uL1 (1.0-4.8); LYMPHOCYTES % 25.4 % (24.0-44.0); MEAN CORP HGB 30.9 pg (26-34); MONOCYTES # 0.3 10^3/uL (0.3-0.8); MONOCYTES % 5.3 % (5.0-12.0); NEUTROPHIL # 3.2 10^3/uL (1.8-7.7); PLATELET COUNT 129 10^3/uL (150-400); RED CELL DISTRIBUTION WIDTH 12.7 % (11.5-14.5)
[2022-03-08] MEDS: TORADOL IV PRN (06:07)
[2022-03-08] MEDS: D5W-1/2 NS/KCL 20MEQ 1,000 ML IV SCH ×2 (07:00→08:16)
[2022-03-08 08:12] VITALS: BP 121/72
[2022-03-08] MEDS: PROTONIX IV IV SCH (08:16)
[2022-03-08] MEDS: FLAGYL 500MG/ 100 ML NS 100 ML IV SCH (08:25)
[2022-03-08] MEDS ORDERED: PANT40TA6 PO (09:16)
[2022-03-08] MEDS ORDERED: METR-67 PO (09:16)
[2022-03-08] MEDS ORDERED: CIPR500T86 PO (09:16)
--- NOTE | 2022-03-08 10:16 | PRM.DC ---
Discharge Summary Hospital Course 46yoF who presents with Lower abdominal pain over the past 12 hours. The patient reports that she has had nausea and emesis as well as crampy abdominal pain chiefly afflicting the lower quadrants. She has not had diarrhea and had a normal bowel movement this morning. The patient reports that she had been in her usual state of excellent health prior to the onset of symptoms, and takes no medications on a regular basis. Work-up in the emergency room including CT abdomen pelvis patient was found to have acute diverticulitis. Patient was not able to tolerate p.o. Patient admitted to the hospital for further management. Patient started on IV antibiotics, Cipro and metronidazole. Pain medications and pain management. Last night patient started on clear liquids during this morning. Pain is improving. Abdomen is less tender. Patient will be discharged home and to continue on oral antibiotics for a total of 2 weeks. Patient advised to follow- up with her primary care physician in 1 week. May need referral to GI for possible endoscopy after diverticulitis resolved. Discharge instructions including diet given to the patient including diet. Medication reconciliation completed. Activity as tolerated. Patient will be discharged home. Patient History: Chronic obstructive pulmonary disease 33 FATHER Diabetes mellitus 32 MOTHER Hypertension 32 MOTHER No Family History of: Alzheimer's disease Asthma Cerebrovascular disorder Congestive heart failure Diabetes insipidus Parkinson's disease Exam/Vitals Vital Signs Date Time Temp Pulse Resp B/P (MAP) Pulse Ox O2 Delivery O2 Flow Rate FiO2 03/08/22 08:12 98.5 64 18 121/72 (88) 95 Room Air* 0 21 General: Alert, Oriented X3, No acute distress HEENT: PERRLA Neck: Supple, No JVD Lungs: Clear to auscultation, Normal air movement Heart: Regular rate, Normal S1, Normal S2 Abdomen: Normal bowel sounds, Soft, No tenderness Extremities: No clubbing, No cyanosis Skin: No significant lesion Neuro: Normal speech, Normal tone Psych/Mental Status: Mental status NL, Mood NL Scheduled Ciprofloxacin Hcl (Cipro), 500 MG PO BID Metronidazole (Metronidazole), 1 TAB PO TID Pantoprazole Sodium (Pantoprazole Sodium), 1 TAB PO DAILY Sepsis Evaluation @ Discharge 03/08/22 00:31 Plan Problems: (1) Diverticulitis Status: Acute ICD Code: K57.92 - Diverticulitis of intestine, part unspecified, without perforation or abscess without bleeding SNOMED: 611293054 (2) Intractable abdominal pain Status: Resolved ICD Code: R10.9 - Unspecified abdominal pain SNOMED: 08617846 (3) Nausea & vomiting Status: Resolved ICD Code: R11.2 - Nausea with vomiting, unspecified SNOMED: 66386356 (4) Morbid obesity Status: Chronic ICD Code: E66.01 - Morbid (severe) obesity due to excess calories SNOMED: 732714894 Plan 46yoF who presents with Lower abdominal pain over the past 12 hours. The patient reports that she has had nausea and emesis as well as crampy abdominal pain chiefly afflicting the lower quadrants. She has not had diarrhea and had a normal bowel movement this morning. The patient reports that she had been in her usual state of excellent health prior to the onset of symptoms, and takes no medications on a regular basis. Work-up in the emergency room including CT abdomen pelvis patient was found to have acute diverticulitis. Patient was not able to tolerate p.o. Patient admitted to the hospital for further management. Patient started on IV antibiotics, Cipro and metronidazole. Pain medications and pain management. Last night patient started on clear liquids during this morning. Pain is improving. Abdomen is less tender. Patient will be discharged home and to continue on oral antibiotics for a total of 2 weeks. Patient advised to follow- up with her primary care physician in 1 week. May need referral to GI for possible endoscopy after diverticulitis resolved. Discharge instructions including diet given to the patient including diet. Medication reconciliation completed. Activity as tolerated. Patient will be discharged home. SARANYA IRWIN MD Mar 08, 2022 10:16
--- NOTE | 2022-03-08 11:15 | NUR ---
DC DC INSTRUCTIONS GIVEN. PT VOICED UNDERSTANDING AND SIGNED WRITTEN OF SAME. IV DCD. TIP INTACT.
[2022-03-08 11:40] VITALS: BP 121/72
--- NOTE | 2022-03-08 11:40 | NUR ---
DC PT DCD HOME VIA W/C TO PRIVATE AUTO IN STABLE CONDITION PER RN.
== END 2022-03-08 11:40 | disposition home or self-care (01) | DRG 392 ==
LOC: ER 10:00 → MS 12:49
PROVIDERS: ADMIT Surgery; ATTEND Internal Medicine
DX: K57.92 Diverticulitis of intestine, part unspecified, without perforation or abscess without bleeding (principal); Z68.42 Body mass index [BMI] 45.0-49.9, adult; E66.01 Morbid (severe) obesity due to excess calories; M54.9 Dorsalgia, unspecified; Z79.899 Other long term (current) drug therapy
CPT/HCPCS: 36415; 74176; 80048; 80053; 81003; 83690; 84703; 85025; 85610; 85730; 87086; 99285; C9113; G0378; J0131; J0744; J1885; J2405; J3490; J7030; J7050; J7070

== ENCOUNTER 2022-05-24 09:42 | Emergency (ER) | payer SELFPAY ==
[~2022-05-24] VITALS: Ht 157.5 cm; Wt 165.6 kg
[2022-05-24 09:42] VITALS: BP 169/94
[~2022-05-24 09:42] MED LIST changes: +CIPR500T86 PO; +METR-67 PO; +PANT40TA6 PO
--- NOTE | 2022-05-24 09:57 | ER.PDOC ---
General Chief Complaint: Requesting Medical Care Stated Complaint: FALL/RIGHT FOOT PAIN Time seen by MD: 09:57 Source: patient Exam Limitations: no limitations History of Present Illness Initial Comments 46 F slipped down the last two stairs today and scraped her foot, twisting/inverting her R ankle now having pain more in the superolateral tendons than bones themselves. Tetanus not UTD. Onset: just prior to arrival Where: home Severity: moderate Context: fall, twist Associated Symptoms: other Modifying Factors: pain on movement Allergies: Coded Allergies: No Known Allergies (Unverified , 05/01/13) Home Meds Active Scripts Pantoprazole Sodium (PANTOPRAZOLE SODIUM) 40 Mg Tablet.dr, 1 TAB PO DAILY, #15 TAB 3 Refills Prov:SARANYA IRWIN MD 03/08/22 Metronidazole (METRONIDAZOLE) 500 Mg Tablet, 1 TAB PO TID for 12 Days, #24 TAB 0 Refills Prov:SARANYA IRWIN MD 03/08/22 Ciprofloxacin Hcl (CIPRO) 500 Mg Tablet, 500 MG PO BID for 12 Days, #24 TABLET Prov:SARANYA IRWIN MD 03/08/22 Past Medical History Medical History: no pertinent history Surgical History: appendectomy, cholecystectomy, tubal Family History Significant Family History: no pertinent family hx Social History Smoking: non-smoker Alcohol Use: none Drug Use: none Reviewed Nursing Reviewed: Vital Signs, Abn. Noted, Nursing Assessment Review of Systems Constitutional: no symptoms reported EENTM: no symptoms reported Respiratory: no symptoms reported Cardiovascular: no symptoms reported Gastrointestinal: no symptoms reported Genitourinary: no symptoms reported Musculoskeletal: see HPI Skin: no symptoms reported Psychiatric/Neurological: no symptoms reported All Other Systems: Reviewed and Negative Physical Exam General Appearance: Alert Foot: tenderness (abrasion, pain mostly in the dorsolateral ligamenture) Ankle: nml inspection, no joint swelling (some pain on lateral malleolus palpation, but not significant) Gait: limited by pain, unable to bear weight Neuro: sensation nml Vascular: no vascular compromise Tendons: tendon function nml Leg/Knee/Thigh: uninjured above ankle Skin: warm/dry (abrasion) Head/ENT: nml inspection Neck/Back: non-tender Resp/CVS: lungs clear Abdomen: non-tender (grossly benign) Results/Orders Results/Orders Orders - ROGELIO LYNNE MD Xr Ankle 3v Rt (12/8/22 10:00) Xr Foot Rt (05/24/22 10:00) Diph,Pertuss(Acell),Tet Vac/Pf (Boostrix (05/24/22 10:00) Diph,Pertuss(Acell),Tet Vac/Pf (Boostrix (05/24/22 10:09) Vital Signs Date Time Temp Pulse Resp B/P (MAP) Pulse Ox O2 Delivery O2 Flow Rate FiO2 05/24/22 09:42 98.1 98 18 05/24/22 09:42 98.1 98 18 169/94 (119) 96 Room Air* 0 21 05/24/22 09:42 98.1 98 18 96 Administered Medications Medications (Trade) Dose Ordered Sig/Nikhil Route PRN Reason Start Time Stop Time Status Last Admin Dose Admin Diphtheria/ Tetanus/Acell Pertussis (Boostrix) 0.5 ml ONCE ONCE IM 05/24/22 10:00 05/24/22 10:01 DC 05/24/22 10:13 0.5 ML Progress Progress x-rays are negative. We will give rx, crutches, and an ankle splint, also update tetanus ER DEPART Departure Time of Disposition: 10:52 Disposition: 01 HOME / SELF CARE / HOMELESS Impression: Primary Impression: Sprain of right ankle Condition: Stable Patient Instructions: Ankle Sprain, Crutch Use Referrals: PCP,UNKNOWN (PCP) PRIMARY CARE PROVIDER Duration or Time Spent with Pa: 10 min ROGELIO LYNNE MD May 24, 2022 09:57
[2022-05-24] MEDS ORDERED: BOOSTRIX IM ONE ×2 (10:00→10:09)
--- NOTE | 2022-05-24 10:32 | DIREP ---
PROCEDURE:XRAY FOOT MIN 3 VWS-RT COMPARISON:[facility], CR, XRAY FOOT MIN 3 VWS-RT, 07/09/2021, 03:10 PM. INDICATIONS:foot/ankle trauma FINDINGS: BONES:Prior right calcaneal spurs. JOINTS:Normal. SOFT TISSUES:Normal. OTHER:No additional findings. CONCLUSION:No acute findings. Dictated by: Ad Torres MD on 05/24/2022 at 10:28 AM
--- NOTE | 2022-05-24 10:46 | DIREP ---
PROCEDURE:XRAY ANKLE MIN 3VWS-RT COMPARISON:None. INDICATIONS:foot/ankle trauma FINDINGS: BONES:Normal. JOINTS:Normal. SOFT TISSUES:Normal. OTHER:Spurring in the calcaneus. CONCLUSION:No acute findings. Dictated by: Ad Torres MD on 05/24/2022 at 10:43 AM
--- NOTE | 2022-05-24 11:00 | NUR ---
splint and crutches splint applied to right ankle and taught patient how to use crutches. verbalized understanding.
== END 2022-05-24 11:08 | disposition home or self-care (01) ==
LOC: ER 09:42
DX: S93.401A Sprain of unspecified ligament of right ankle, initial encounter (principal); Z90.49 Acquired absence of other specified parts of digestive tract; X58.XXXA Exposure to other specified factors, initial encounter; Y93.89 Activity, other specified; Y92.89 Other specified places as the place of occurrence of the external cause; Y99.8 Other external cause status
CPT/HCPCS: 90715; 96372; 99284; 73610-RT; 73630-RT

== ENCOUNTER 2022-08-04 16:28 | Emergency (ER) | payer MEDICAID ==
[~2022-08-04] VITALS: Ht 157.5 cm; Wt 117.9 kg
[2022-08-04 16:30] VITALS: BP 124/73
--- NOTE | 2022-08-04 16:30 | NUR ---
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
[2022-08-04] MEDS ORDERED: NS 1000ML 1,000 ML IV STA (17:01)
[2022-08-04] MEDS ORDERED: ZOFRAN IV STA ×2 (17:01→18:16)
[2022-08-04] MEDS ORDERED: NS 1000ML 1,000 ML ONE (17:03)
[2022-08-04] MEDS ORDERED: ZOFRAN ONE ×2 (17:03→18:13)
[2022-08-04 17:28] LABS: BILIRUBIN,URINE NEGATIVE (NEGATIVE)
[2022-08-04 17:29] LABS: BASOPHIL % 0.2 % (0.0-0.2); EOSINOPHIL % 0.7 % (0.0-5.0); LYMPHOCYTES # 0.94 10^3/uL1 (1.0-4.8); LYMPHOCYTES % 15.6 % (24.0-44.0); MEAN CORP HGB 30.5 pg (26-34); MONOCYTES # 0.3 10^3/uL (0.3-0.8); MONOCYTES % 4.5 % (5.0-12.0); NEUTROPHIL # 4.7 10^3/uL (1.8-7.7); NEUTROPHILS % 78.7 % (41.0-85.0); PLATELET COUNT 136 10^3/uL (150-400); RED CELL DISTRIBUTION WIDTH 12.7 % (11.5-14.5)
[2022-08-04 17:57] LABS: CARBON DIOXIDE 23.5 mmol/L (20.0-32)
[2022-08-04] MEDS ORDERED: IMODIUM ONE (18:15)
[2022-08-04] MEDS ORDERED: IMODIUM PO STA (18:16)
--- NOTE | 2022-08-04 18:18 | ER.PDOC ---
General Chief Complaint: Nausea,Vomiting,Diarrhea Stated Complaint: N/V Time seen by MD: 17:00 Source: patient Exam Limitations: no limitations History of Present Illness Initial Comments Nausea, vomiting and diarrhea today. No fever or chills. No abdominal pain. Severity/Quality: moderate Associated Symptoms (vomiting): freq vomitng Associated Symptoms (diarrhea): watery Allergies: Coded Allergies: No Known Allergies (Unverified , 05/01/13) Home Meds Active Scripts Pantoprazole Sodium (PANTOPRAZOLE SODIUM) 40 Mg Tablet.dr, 1 TAB PO DAILY, #15 TAB 3 Refills Prov:SARANYA IRWIN MD 03/08/22 Metronidazole (METRONIDAZOLE) 500 Mg Tablet, 1 TAB PO TID for 12 Days, #24 TAB 0 Refills Prov:SARANYA IRWIN MD 03/08/22 Ciprofloxacin Hcl (CIPRO) 500 Mg Tablet, 500 MG PO BID for 12 Days, #24 TABLET Prov:SARANYA IRWIN MD 03/08/22 Vital Signs First Vital Signs Date Time Temp Pulse Resp B/P (MAP) Pulse Ox O2 Delivery O2 Flow Rate FiO2 08/04/22 16:30 98.5 127 18 93 18 16:30 124/73 (90) Room Air* 0 21 Last Vital Signs Date Time Temp Pulse Resp B/P (MAP) Pulse Ox O2 Delivery O2 Flow Rate FiO2 08/04/22 16:30 98.5 127 18 2 16:30 124/73 (90) 93 Room Air* 0 21 Past Medical History Medical History: no pertinent history Surgical History: appendectomy, cholecystectomy, tubal, other Social History Alcohol Use: none Drug Use: none Constitutional: no symptoms reported EENTM: no symptoms reported Respiratory: no symptoms reported Cardiovascular: no symptoms reported Gastrointestinal: see HPI All Other Systems: Reviewed and Negative Physical Exam General Appearance: No Apparent Distress, WD/WN, Obese HEENT: PERRL/EOMI, Normal ENT Inspection, TMs Normal, Pharynx Normal Neck: Non-Tender, Full Range of Motion, Supple, Normal Inspection Respiratory: chest non-tender, lungs clear, normal breath sounds, no respiratory distress, no accessory muscle use Cardiovascular: Normal Peripheral Pulses, Regular Rate, Rhythm, No Edema, No Gallop, No JVD, No Murmur, Tachycardia Gastrointestinal: Normal Bowel Sounds, Non Tender, Soft Back: Normal Inspection, No CVA Tenderness, No Vertebral Tenderness Extremities: Normal Range of Motion, Non-Tender, Normal Inspection, No Pedal Edema, No Calf Tenderness, Normal Capillary Refill, Pelvis Stable Neurologic/Psychiatric: draft roller picker II-XII NML as Tested, No Motor/Sensory Deficits, Alert, Normal Mood/Affect, Oriented x 3 Skin: Normal Color, Warm/Dry Lymphatic: No Adenopathy Results/Orders Results/Orders Orders - MAYRA FRANKS MD Cbc With Auto Diff (08/04/22 17:01) Comprehensive Metabolic Panel (08/04/22 17:01) Lipase. (08/04/22 17:01) Urinalysis (08/04/22 17:01) Lactic Acid(Ml) (08/04/22 17:01) 0.9 % Sodium Chloride (Ns 1000ml) (08/04/22 17:01) Ondansetron Hcl/Pf (Zofran) (08/04/22 17:01) 0.9 % Sodium Chloride (Ns 1000ml) (08/04/22 17:03) Ondansetron Hcl/Pf (Zofran) (08/04/22 17:03) Ondansetron Hcl/Pf (Zofran) (08/04/22 18:13) Loperamide Hcl (Imodium) (08/04/22 18:15) Ondansetron Hcl/Pf (Zofran) (08/04/22 18:16) Loperamide Hcl (Imodium) (08/04/22 18:16) EKG (08/04/22 18:17) Vital Signs Date Time Temp Pulse Resp B/P (MAP) Pulse Ox O2 Delivery O2 Flow Rate FiO2 08/04/22 16:30 98.5 127 18 08/04/22 16:30 98.5 127 18 124/73 (90) 93 Room Air* 0 21 08/04/22 16:30 98.5 127 18 93 Administered Medications Medications (Trade) Dose Ordered Sig/Nikhil Route PRN Reason Start Time Stop Time Status Last Admin Dose Admin Loperamide HCl (Imodium) 4 mg STAT STAT PO 08/04/22 18:16 08/04/22 18:17 DC 08/04/22 18:18 4 MG Ondansetron HCl (Zofran) 4 mg STAT STAT IV 08/04/22 17:01 08/04/22 17:04 DC 08/04/22 17:08 4 MG Ondansetron HCl (Zofran) 4 mg STAT STAT IV 08/04/22 18:16 08/04/22 18:17 DC 08/04/22 18:18 4 MG Sodium Chloride 1,000 ml @ 1,200 mls/hr Q50M STAT IV 08/04/22 17:01 08/04/22 17:50 DC 08/04/22 17:08 1,200 MLS/HR Laboratory Tests Test 08/04/22 17:05 08/04/22 17:10 White Blood Count 6.0 10^3/uL (4.5-11.0) Red Blood Count 4.85 10^6/uL (4.00-5.20) Hemoglobin 14.8 g/dL (12.0-15.0) Hematocrit 42.6 % (36.0-46.0) Mean Corpuscular Volume 87.8 fL (78-100) Mean Corpuscular Hemoglobin 30.5 pg (26-34) Mean Corpuscular Hemoglobin Concent 34.7 g/dL (33-36.5) Red Cell Distribution Width 12.7 % (11.5-14.5) Platelet Count 136 10^3/uL (150-400) L Mean Platelet Volume 9.8 fL (7.8-11.0) Neutrophils (%) (Auto) 78.7 % (41.0-85.0) Lymphocytes (%) (Auto) 15.6 % (24.0-44.0) L Monocytes (%) (Auto) 4.5 % (5.0-12.0) L Neutrophils # (Auto) 4.7 10^3/uL (1.8-7.7) Lymphocytes # (Auto) 0.94 10^3/uL1 (1.0-4.8) L Monocytes # (Auto) 0.3 10^3/uL (0.3-0.8) Absolute Immature Granulocyte (auto 0.02 10^3 u/L (0-2) Absolute Eosinophils (auto) 0.0 10^3/uL (0.0-0.2) Immature Granulocytes % 0.30 % (0.00-0.50) Eosinophils % 0.7 % (0.0-5.0) Basophils % 0.2 % (0.0-0.2) Basophils # 0.0 10^3/uL (0.0-0.1) Sodium Level 133 mmol/L (132-145) Potassium Level 3.6 mmol/L (3.6-5.2) Chloride Level 100.0 mmol/L (96-109) Carbon Dioxide Level 23.5 mmol/L (20.0-32) Anion Gap 13.1 Blood Urea Nitrogen 12 mg/dL (7-18) Creatinine 0.67 mg/dL (0.59-1.40) Estimated GFR () 114.7 (>/=60) Est GFR (CKD-EPI)(Non-Afr [place]) 94.8 (>/=60) BUN/Creatinine Ratio 17.0 Glucose Level 133 mg/dL (70-110) H Lactic Acid Level 0.8 mmol/L (0.5-1.9) Calcium Level 9.1 mg/dL (8.4-10.5) Total Bilirubin 1.2 mg/dL (0.2-1.0) H Aspartate Amino Transferase (AST) 42 U/L (0-35) H Alanine Aminotransferase (ALT) 46 U/L (12-78) Alkaline Phosphatase 100 U/L (50-136) Total Protein 8.1 g/dL (6.4-8.2) Albumin 3.7 g/dL (3.4-5.0) Globulin 4.4 Albumin/Globulin Ratio 0.840 Lipase 11 U/L (16-77) L Urine Collection Type RANDOM Urine Color YELLOW Urine Appearance CLEAR Urine Bilirubin NEGATIVE (NEGATIVE) Urine Ketones NEGATIVE (NEGATIVE) Urine Specific [place] >=1.030 (1.005-1.030) Urine pH 5.5 (4.5-8.0) Urine Protein NEGATIVE (NEGATIVE) Urine Urobilinogen 1.0 E.U./dL (0.2) Urine Nitrate NEGATIVE (NEGATIVE) Urine Leukocyte Esterase NEGATIVE (NEGATIVE) Urine Glucose (Auto)(UA) NEGATIVE (NEGATIVE) Urine Blood NEGATIVE (NEGATIVE) Progress Progress Chemistries show glucose of 133, AST of 42, rest of chemistry is unremarkable. Lactate is 0.8. CBC is normal. Urinalysis is negative. Patient received a liter of LR bolus, Imodium and Zofran. Her nausea is better and she feels better after the hydration. She is feeling good to go home. She has not had diarrhea the whole time in the ED. ER DEPART Departure Time of Disposition: 18:22 Disposition: 01 HOME / SELF CARE / HOMELESS Impression: Primary Impression: Acute gastroenteritis Additional Impression: Dehydration Condition: Improved Referrals: PCP,UNKNOWN (PCP) PRIMARY CARE PROVIDER Additional Instructions: Phenergan Continue with Imodium at home as instructed Start feeding clear liquids and advance diet as tolerated Follow-up with your PCP in 2 to 3 days Return to ED if worsening or concerns Duration or Time Spent with Pa: 30 min Problem Qualifiers TINY,MAYRA Marmolejo MD Aug 04, 2022 18:18
--- NOTE | 2022-08-04 18:25 | PCM.EKG ---
[facility] Test Date: 2022-08-04 Test Time: 18:19:10 Pat Name: MARCIAL RO [id number] Room: Gender: F Nnps: KIET : 1975 Requested By: MAYRA FRANKS Order Number: [id number] Reading MD: Mayra FRANKS Measurements Intervals [place] Rate: 98 P: 35 ND: 150 QRS: 17 QRSD: 94 T: 53 QT: 358 QTc: 458 Interpretive Statements Sinus rhythm Inferior infarct, old Probable anterolateral infarct, old Baseline wander in lead(s) V1 Compared to ECG 08/14/2021 16:50:22 Sinus tachycardia no longer present Myocardial infarct finding still present Electronically Signed On 08-06-2022 7:13:36 POMOLOGIST by Mayra FRANKS Please click the below link to view image of tracing.
== END 2022-08-04 18:32 | disposition home or self-care (01) ==
LOC: ER 16:28
DX: K52.9 Noninfective gastroenteritis and colitis, unspecified (principal); E86.0 Dehydration; Z90.49 Acquired absence of other specified parts of digestive tract; Z98.51 Tubal ligation status
CPT/HCPCS: 99284; 96374; 96361; 96376; 81003; 80053; 85025; 36415; 83605; 83690; 93005; J7030; J2405 ×2